=== PATIENT | female | born 1960 | race Hispanic/Latino ===

== ENCOUNTER → 2018-03-23 | Day surgery (SDC) | payer MEDICARE ==
[2018-03-17 12:33] LABS: BASOPHILS % 0.4 % (0.0-1.0); EOSINOPHILS # (AUTO) 0.1 (0.0-0.4); EOSINOPHILS % 1.9 % (0.0-6.0); HEMATOCRIT 38.5 % (34.2-44.1); HEMOGLOBIN 12.6 g/dL (12.0-16.0); LYMPHOCYTES # (AUTO) 2.7 (1.0-3.2); LYMPHOCYTES % 39.1 % (18.0-39.1); MEAN CORPUSCULAR HEMOGLOBIN 29.1 pg (28-32); MEAN CORPUSCULAR HGB CONC 32.7 g/dL (31-35); MEAN CORPUSCULAR VOLUME 88.9 fL (81-99); MONOCYTES # (AUTO) 0.4 (0.2-0.8); MONOCYTES % 5.4 % (4.4-11.3); NEUTROPHILS # (AUTO) 3.7 (2.1-6.9); NEUTROPHILS % 53.1 % (38.7-80.0); PLATELET COUNT 240 x10e3/uL (140-360); RED BLOOD COUNT 4.33 x10e6/uL (3.6-5.1); RED CELL DISTRIBUTION WIDTH 13.5 % (11.7-14.4)
[~2018-03-23] MED LIST: FENTANYL CITRATE/PF 100MCG/2 ML INJ ONE; GABAPENTIN300 MG PO; INVOKANA SQ; LISINOPRIL2.5 MG PO; METFORMIN HCL500 MG PO; MIDAZOLAM HCL 2 MG/2 ML VIAL ONE; PROPOFOL IV EMULSION 10 MG/ML 50 ML VIAL ONE; SIMVASTATIN20 MG PO
--- OUTSIDE RECORDS SUMMARY | 2018-03-23 06:25 | XMS REPORT | Continuity of Care Document ---
Author Author [facility] Interface Address Unknown Phone Unavailable Problems Problem Status Onset Date Classification Date Reported Comments Source ACUTE PYELONEPHRITIS, KIDNEY STONE, [place] Active 07/18/2016 [facility] COUGH X2 WEEKS Active 07/18/2016 [facility] DM (<span ID="[id number]">Confirmed</span>) Active Problem 07/24/2016 [facility] Diabetes Resolved Problem 07/24/2016 [facility] Hyperlipidemia Active Problem 07/24/2016 [facility] HTN (<span ID="[id number]">Confirmed</span>) Active Problem 07/24/2016 [facility] HTN (<span ID="[id number]">Confirmed</span>) Resolved Problem 07/24/2016 [facility] ACUTE PYELONEPHRITIS Active [facility] CALCULUS OF KIDNEY Active [facility] Medications Medication Details Route Status Patient Instructions Ordering Provider Order Date Source Acetaminophen 300 MG / Codeine Phosphate 30 MG Oral Tablet [Tylenol with Codeine #3] 1 tab, PO, Q6H, PRN Pain Score 6-10, # 20 tab, 0 Refill(s) Active 07/21/2016 [facility] lactobacillus acidophilus-lactobacillus casei oral delayed release capsule 1 tab, PO, BID, # 28 tab, 0 Refill(s) Active 07/21/2016 [facility] Ciprofloxacin 500 MG Oral Tablet [Cipro] 500 mg=1 tab, PO, Q12H, X 14 day, # 28 tab, 0 Refill(s) Active 07/21/2016 [facility] metoprolol tartrate 25 mg oral tablet 25 mg=1 tab, PO, Q12H, # 60 tab, 0 Refill(s) Active 07/21/2016 [facility] lisinopril 5 mg oral tablet 10 mg=2 tab, PO, Daily, # 60 tab, 0 Refill(s) Active 07/21/2016 [facility] guaiFENesin 600 mg oral tablet, extended release 600 mg=1 tab, PO, Q12H, PRN Cough, X 7 day, # 14 tab, 0 Refill(s) Active 07/21/2016 [facility] potassium chloride 40 mEq, 2 tab, Route: PO, Drug form: ERTAB, ONCE, Dosing Weight 106.182, kg, Start date: 07/21/16 8:02:00 FOLD SKIVER, Stop date: 07/21/16 8:02:00 CSTNotes: (Same as: K-Dur 20) "Do Not Crush" With food and full glass of water Inactive 07/21/2016 [facility] Protonix 40 mg, 1 tab, Route: PO, Drug form: ECTAB, Before Breakfast, Dosing Weight 106.182, kg, Start date: 07/21/16 7:30:00 FOLD SKIVER, Duration: 30 day, Stop date: 08/19/16 7:30:00 CDTNotes: Tablet should not be chewed or crushed. (Same as: Protonix) Inactive 07/21/2016 [facility] potassium chloride 40 mEq, 2 tab, Route: PO, Drug form: ERTAB, ONCE, Dosing Weight 106.182, kg, Start date: 07/20/16 12:16:00 FOLD SKIVER, Stop date: 07/20/16 12:16:00 CSTNotes: (Same as: K-Dur 20) "Do Not Crush" With food and full glass of water Inactive 07/20/2016 [facility] Magnesium Sulfate 2 gm, 50 mL, Route: IVPB, Drug form: INJ, ONCE, Dosing Weight 106.182, kg, Start date: 07/20/16 12:15:00 FOLD SKIVER, Duration: 2 hr, Stop date: 07/20/16 12:15:00 CSTNotes: WASTE: F/P - Sink; E - iRezQ Trash Bin Inactive 07/20/2016 [facility] metoprolol tartrate 25 mg, 1 tab, Route: PO, Drug form: TAB, Q12H, Dosing Weight 106.182, kg, Start date: 07/19/16 21:00:00 FOLD SKIVER, Duration: 30 day, Stop date: 08/18/16 9:00:00 CDTNotes: (Same as: Lopressor) No Longer Active 07/20/2016 [facility] Novolin N 50 unit, 0.5 mL, Route: SUB-Q, Drug form: INJ, BID, Dosing Weight 106.182, kg, Start date: 07/19/16 17:00:00 FOLD SKIVER, Duration: 30 day, Stop date: 08/18/16 9:00:00 CDTNotes: Roll in palms of hands gently; Do not shake vigorously. (Same as: NovoLIN N, Humulin N) Do not hold insulin without contacting prescriber "single patient use only" WASTE: F/P - Black; E - Municipal Trash Bin Stable for 14 days at room temperature Expires in days from Date No Longer Active 07/19/2016 [facility] Protonix 40 mg, Route: IVP, Drug form: INJ, Before Dinner, Dosing Weight 106.182, kg, Start date: 07/19/16 16:30:00 FOLD SKIVER, Duration: 30 day, Stop date: 08/17/16 16:30:00 CDTNotes: For IV push reconstitute with 10 ml 0.9% sodium chloride and push over 2 minutes. (Same as: Protonix) No Longer Active 07/19/2016 [facility] potassium chloride 40 mEq, 2 tab, Route: PO, Drug form: ERTAB, ONCE, Dosing Weight 106.182, kg, Start date: 07/19/16 14:45:00 FOLD SKIVER, Stop date: 07/19/16 14:45:00 CSTNotes: (Same as: K-Dur 20) "Do Not Crush" With food and full glass of water Inactive 07/19/2016 [facility] fentaNYL (ANES) Route: IV, Drug form: INJ, ONCE, Stop date: 07/19/16 13:27:00 FOLD SKIVER Inactive 07/19/2016 [facility] ondansetron (ANES) Route: IV, Drug form: INJ, ONCE, Stop date: 07/19/16 13:27:00 FOLD SKIVER Inactive 07/19/2016 [facility] hydromorphone (ANES) Route: IV, Drug form: INJ, ONCE, Stop date: 07/19/16 13:27:00 FOLD SKIVER Inactive 07/19/2016 [facility] propofol (ANES) Route: IV, Drug form: INJ, ONCE, Stop date: 07/19/16 13:27:00 FOLD SKIVER Inactive 07/19/2016 [facility] lidocaine (ANES) Route: IV, Drug form: INJ, ONCE, Stop date: 07/19/16 13:27:00 FOLD SKIVER Inactive 07/19/2016 [facility] midazolam (ANES) Route: IV, Drug form: SOLN, ONCE, Stop date: 07/19/16 13:27:00 FOLD SKIVER Inactive 07/19/2016 [facility] cefepime (ANES) Route: IV, Drug form: INJ, ONCE, Stop date: 07/19/16 13:27:00 FOLD SKIVER Inactive 07/19/2016 [facility] LR 1000 mL INJ (ANES) Route: IV, Total Volume: 1,000, Start date: 07/19/16 12:43:00 FOLD SKIVER, Stop date: 07/19/16 13:43:00 FOLD SKIVER Inactive 07/19/2016 [facility] Insulin regular 2 unit, Route: IV, ONCE, Dosing Weight 106.182, kg, Start date: 07/19/16 12:32:00 FOLD SKIVER, Stop date: 07/19/16 12:32:00 FOLD SKIVER Inactive 07/19/2016 [facility] Insulin regular 2 unit, 0.02 mL, Route: IV, Drug form: INJ, ONCE, Dosing Weight 106.182, kg, Start date: 07/19/16 11:25:00 FOLD SKIVER, Stop date: 07/19/16 11:25:00 CSTNotes: (Same as: Humulin R and NovoLIN R) WASTE: F/P - Black; E - Municipal Trash Bin (Do not shake) Inactive 07/19/2016 [facility] Lisinopril 10 mg, 2 tab, Route: PO, Drug form: TAB, Daily, Dosing Weight 106.182, kg, Start date: 07/19/16 9:00:00 FOLD SKIVER, Duration: 30 day, Stop date: 08/17/16 9:00:00 CDTNotes: (Same as: Prinivil, Zestril) No Longer Active 07/19/2016 [facility] Tylenol 650 mg, 2 tab, Route: PO, Drug form: TAB, Q6H, Dosing Weight 106.182, kg, PRN For Temp > 100.4 F, Start date: 07/19/16 0:30:00 FOLD SKIVER, Duration: 30 day, Stop date: 08/18/16 0:29:00 CDTNotes: Do not exceed 4 gm/day. (Same as: Tylenol) No Longer Active 07/19/2016 [facility] heparin 5,000 unit, 1 mL, Route: SUB-Q, Drug form: INJ, Q8H, Dosing Weight 106.182, kg, Start date: 07/19/16 0:00:00 FOLD SKIVER, Duration: 30 day, Stop date: 08/17/16 16:00:00 CDTNotes: porcine heparin No Longer Active 07/19/2016 [facility] Gentamicin Sulfate (JAIL) 120 mg, 100 mL, Route: IV, Drug form: INJ, [id number], Dosing Weight 106.182, kg, Start date: 07/18/16 22:00:00 FOLD SKIVER, Duration: 30 day, Stop date: 08/17/16 10:00:00 CDTNotes: TIME CRITICAL MEDICATION (Same as Garamycin) No Longer Active 07/19/2016 [facility] Dextrose 50% Syringe 25 gm, 50 mL, Route: IVP, Drug Form: INJ, Dosing Weight 106.182, kg, PRN, PRN Blood Glucose Results, Start date: 07/18/16 21:34:00 FOLD SKIVER, Duration: 30 day, Stop date: 08/17/16 22:33:00 CDT No Longer Active 07/19/2016 [facility] Glucagon 1 mg, Route: IM, Drug form: PDR/INJ, PRN, Dosing Weight 106.182, kg, PRN Blood Glucose Results, Start date: 07/18/16 21:34:00 FOLD SKIVER, Duration: 30 day, Stop date: 08/17/16 22:33:00 CDT No Longer Active 07/19/2016 [facility] Insulin, Aspart, Human 8 unit, 0.08 mL, Route: SUB-Q, Drug form: SOLN, TID-Before Meals, Dosing Weight 106.182, kg, PRN Blood Glucose Results, Start date: 07/18/16 21:34:00 FOLD SKIVER, Duration: 30 day, Stop date: 08/17/16 21:33:00 CDTNotes: Roll in palms of hands gently; Do not shake vigorously. (Same as: NovoLOG) "single patient use only" WASTE: F/P - Black; E - Municipal Trash Bin Stable for 28 days at room temperature. Expires in days from Date No Longer Active 07/19/2016 [facility] Simvastatin 20 mg, 1 tab, Route: PO, Drug form: TAB, Bedtime, Dosing Weight 106.182, kg, Start date: 07/18/16 21:00:00 FOLD SKIVER, Duration: 30 day, Stop date: 08/16/16 21:00:00 CDTNotes: (Same as: Zocor) No Longer Active 07/19/2016 [facility] cefepime 1 gm, Route: IV, [id number], Dosing Weight 106.182, kg, (For CrCl > /=50 ml/min), Start date: 07/18/16 21:00:00 FOLD SKIVER, Duration: 30 day, Stop date: 08/17/16 13:00:00 CDTNotes: (Same As: Maxipime) MEDICATION WASTE Product Size: 1000 mg Product Wasted: ___ mg No Longer Active 07/19/2016 [facility] Mucinex 600 mg, 1 tab, Route: PO, Drug form: ERTAB, Q12H, Dosing Weight 106.182, kg, Start date: 07/18/16 21:00:00 FOLD SKIVER, Duration: 30 day, Stop date: 08/17/16 9:00:00 CDTNotes: (Same as: Guaifenesin LA, Humibid LA, Mucinex) "Do Not Crush" Take medication with plenty of water. No Longer Active 07/19/2016 [facility] Morphine 2 mg, 1 mL, Route: IVP, Drug form: INJ, Q4H, Dosing Weight 106.182, kg, PRN Pain Score 7-10, Start date: 07/18/16 20:44:00 FOLD SKIVER, Duration: 30 day, Stop date: 08/17/16 20:43:00 CDTNotes: (Same as:MORPhine Sulfate) No Longer Active 07/19/2016 [facility] Ondansetron 4 mg, 2 mL, Route: IVP, Drug form: INJ, Q6H, Dosing Weight 106.182, kg, PRN Nausea & Vomiting, Start date: 07/18/16 20:43:00 FOLD SKIVER, Duration: 30 day, Stop date: 08/17/16 20:42:00 CDTNotes: (Same as: Zofran) MEDICATION WASTE Product Size: 4 mg Product Wasted: ___ mg No Longer Active 07/19/2016 [facility] sodium chloride 0.9% 1000 ml INJ 1,000 mL 1,000 mL, Rate: 125 ml/hr, Infuse over: 8 hr, Route: IV, Dosing Weight 106.182 kg, Total Volume: 1,000, Start date: 07/18/16 20:42:00 FOLD SKIVER, Duration: 30 day, Stop date: 08/17/16 20:41:00 CDT No Longer Active 07/19/2016 [facility] Unknown Home Medication See Instructions, Refill(s) 0 No Longer Active 07/19/2016 [facility] simvastatin 20 mg oral tablet 20 mg=1 tab, PO, Bedtime, 0 Refill(s) Active 07/19/2016 [facility] 24 HR Metformin hydrochloride 500 MG Extended Release Tablet 1,000 mg=2 tab, PO, BID, 0 Refill(s) Active 07/19/2016 [facility] NPH Insulin, Human 100 UNT/ML Injectable Suspension [Novolin N] 50 unit, SUB-Q, BID, 0 Refill(s) Active 07/19/2016 [facility] Tylenol 975 mg, 3 tab, Route: PO, Drug form: TAB, ONCE, Dosing Weight 106.818, kg, Priority: STAT, Start date: 07/18/16 18:17:00 FOLD SKIVER, Stop date: 07/18/16 18:17:00 CSTNotes: Do not exceed 4 gm/day. (Same as: Tylenol) Inactive 07/19/2016 [facility] Rocephin 1 gm, Route: IVPB, ONCE, Dosing Weight 106.818, kg, Priority: STAT, Start date: 07/18/16 17:05:00 FOLD SKIVER, Stop date: 07/18/16 17:05:00 CSTNotes: (Same As: Rocephin). Use with 100 mL NS and infuse over 30 min MEDICATION WASTE Product Size: 1000 mg Product Wasted: ___ mg Inactive 07/18/2016 [facility] Sodium Chloride 0.154 MEQ/ML Injectable Solution 1,000 mL, 1,000 ml/hr, Infuse Over: 1 hr, Route: IV, 1,000, Drug form: INJ, ONCE, Priority: STAT, Dosing Weight 106.818 kg, Start date: 07/18/16 17:04:00 FOLD SKIVER, Duration: 1 doses or times, Stop date: 07/18/16 17:04:00 FOLD SKIVER Inactive 07/18/2016 [facility] Motrin 800 mg, Route: PO, Drug form: TAB, ONCE, Dosing Weight 106.818, kg, Priority: STAT, Start date: 07/18/16 16:51:00 FOLD SKIVER, Stop date: 07/18/16 16:51:00 FOLD SKIVER Inactive 07/18/2016 [facility] Albuterol 0.833 MG/ML / Ipratropium Ambrose 0.167 MG/ML Inhalant Solution [DuoNeb] 3 ml, Route: NEB, Drug Form: SOLN, Dosing Weight 106.818, kg, PRN, PRN Respiratory Protocol, Start date: 07/18/16 16:23:00 FOLD SKIVER, Duration: 30 day, Stop date: 08/17/16 17:22:00 CDTNotes: (Same as: Duoneb) No Longer Active 07/18/2016 [facility] Sodium Chloride 0.154 MEQ/ML Injectable Solution 1,000 mL, 1,000 ml/hr, Infuse Over: 1 hr, Route: IV, 1,000, Drug form: INJ, ONCE, Priority: STAT, Dosing Weight 106.818 kg, Start date: 07/18/16 16:16:00 FOLD SKIVER, Duration: 1 doses or times, Stop date: 07/18/16 16:16:00 FOLD SKIVER Inactive 07/18/2016 [facility] Zofran 4 mg, 2 mL, Route: IVP, Drug form: INJ, ONCE, Dosing Weight 106.818, kg, Start date: 07/18/16 16:16:00 FOLD SKIVER, Stop date: 07/18/16 16:16:00 CSTNotes: (Same as: Zofran) MEDICATION WASTE Product Size: 4 mg Product Wasted: ___ mg Inactive 07/18/2016 [facility] Allergies, Adverse Reactions, Alerts Substance Category Reaction Severity Reaction type Status Date Reported Comments Source Immunizations Immunization Date Given Site Status Last Updated Comments Source Results Order Name Results Value Reference Range Date Interpretation Comments Source CHEM PANEL Lactic Acid Lvl 0.7 mMol/L 0.5 - 2.2 07/21/2016 [facility] CHEM PANEL Calcium Lvl 7.8 mg/dL 8.5 - 10.5 07/21/2016 [facility] CHEM PANEL Chloride Lvl 106 meq/L 95 - 109 07/21/2016 [facility] CHEM PANEL CO2 23 meq/L 24 - 32 07/21/2016 [facility] CHEM PANEL Sodium Lvl 140 meq/L 135 - 145 07/21/2016 [facility] CHEM PANEL Potassium Lvl 3.2 meq/L 3.5 - 5.1 07/21/2016 [facility] CHEM PANEL Creatinine Lvl 0.54 mg/dL 0.50 - 1.40 07/21/2016 [facility] CHEM PANEL Glucose Lvl 116 mg/dL 70 - 99 07/21/2016 [facility] CHEM PANEL BUN 8 mg/dL 7 - 22 07/21/2016 [facility] CHEM PANEL Bili Total 0.6 mg/dL 0.2 - 1.3 07/21/2016 [facility] CHEM PANEL Albumin Lvl 2.2 g/dL 3.5 - 5.0 07/21/2016 [facility] CHEM PANEL ALT 13 unit/L 0 - 65 07/21/2016 [facility] CHEM PANEL Total Protein 5.7 g/dL 6.4 - 8.4 07/21/2016 [facility] CHEM PANEL AST 16 unit/L 0 - 37 07/21/2016 [facility] CHEM PANEL Alk Phos 86 unit/L 39 - 136 07/21/2016 [facility] CHEM PANEL eGFR 106 mL/min/1.73m2 07/21/2016 Result Comment: The eGFR is calculated using the CKD-EPI formula. In most young, healthy individuals the eGFR will be >90 mL/min/1.73m2. The eGFR declines with age. An eGFR of 60-89 may be normal in some populations, particularly the elderly, for whom the CKD-EPI formula has not been extensively validated. Use of the eGFR is not recommended in the following populations: Individuals with unstable creatinine concentrations, including patients and those with serious co-morbid conditions. Patients with extremes in muscle mass or diet. The data above are obtained from the National Kidney Disease Education Program (NKDEP) which additionally recommends that when the eGFR is used in patients with extremes of body mass index for purposes of drug dosing, the eGFR should be multiplied by the estimated BMI. [facility] CHEM PANEL AGAP 14.2 meq/L 10.0 - 20.0 07/21/2016 [facility] CHEM PANEL B/C Ratio 15 6 - 25 07/21/2016 [facility] CHEM PANEL Globulin 3.5 g/dL 2.7 - 4.2 07/21/2016 [facility] CHEM PANEL A/G Ratio 0.6 0.7 - 1.6 07/21/2016 [facility] HEMATOLOGY Lymphocytes 22.9 % 20.0 - 40.0 07/21/2016 [facility] HEMATOLOGY Segs 64.1 % 45.0 - 75.0 07/21/2016 [facility] HEMATOLOGY Eosinophils 0.5 % 0.0 - 4.0 07/21/2016 [facility] HEMATOLOGY Basophils 0.2 % 0.0 - 1.0 07/21/2016 [facility] HEMATOLOGY Segs-Bands # 4.1 K/CMM 1.5 - 8.1 07/21/2016 [facility] HEMATOLOGY Monocytes 12.3 % 2.0 - 12.0 07/21/[address] [facility] Lymphocytes # 1.5 K/CMM 1.0 - 5.5 07/21/[address] [facility] Monocytes # 0.8 K/CMM 0.0 - 0.8 07/21/[address] [facility] Platelet 208 K/CMM 133 - 450 07/21/2016 [facility] HEMATOLOGY RDW 14.5 % 11.5 - 14.5 07/21/[address] [facility] MCH 28.3 pg 27.0 - 31.0 07/21/[address] [facility] MPV 8.6 fL 7.4 - 10.4 07/21/[address] [facility] MCV 82.1 fL 80.0 - 98.0 07/21/[address] [facility] Hct 29.5 % 36.0 - 48.0 07/21/[address] [facility] Hgb 10.1 g/dL 12.0 - 16.0 07/21/[address] [facility] RBC 3.59 M/CMM 4.20 - 5.40 07/21/[address] [facility] WBC 6.4 K/CMM 3.7 - 10.4 07/21/[address] [facility] MCHC 34.4 g/dL 32.0 - 36.0 07/21/2016 [facility] ANEMIA STUDY % Satur Fe 8 % 12 - 57 07/20/2016 [facility] ANEMIA STUDY UIBC 193 ug/dl 110 - 370 07/20/2016 [facility] ANEMIA STUDY Iron 17 ug/dl 30 - 160 07/20/2016 [facility] ANEMIA STUDY TIBC 210 ug/dl 228 - 428 07/20/2016 [facility] ANEMIA STUDY Ferritin Lvl 200 ng/mL 5 - 204 07/20/2016 [facility] CHEM PANEL Magnesium Lvl 1.7 mg/dL 1.8 - 2.4 07/20/2016 [facility] CHEM PANEL Lipase Lvl 65 unit/L 73 - 393 07/20/2016 [facility] CHEM PANEL eGFR 103 mL/min/1.73m2 07/20/2016 Result Comment: The eGFR is calculated using the CKD-EPI formula. In most young, healthy individuals the eGFR will be >90 mL/min/1.73m2. The eGFR declines with age. An eGFR of 60-89 may be normal in some populations, particularly the elderly, for whom the CKD-EPI formula has not been extensively validated. Use of the eGFR is not recommended in the following populations: Individuals with unstable creatinine concentrations, including patients and those with serious co-morbid conditions. Patients with extremes in muscle mass or diet. The data above are obtained from the National Kidney Disease Education Program (NKDEP) which additionally recommends that when the eGFR is used in patients with extremes of body mass index for purposes of drug dosing, the eGFR should be multiplied by the estimated BMI. [facility] CHEM PANEL Glucose Lvl 128 mg/dL 70 - 99 07/20/2016 [facility] CHEM PANEL Albumin Lvl 2.3 g/dL 3.5 - 5.0 07/20/2016 [facility] CHEM PANEL AST 17 unit/L 0 - 37 07/20/2016 [facility] CHEM PANEL ALT 15 unit/L 0 - 65 07/20/2016 [facility] CHEM PANEL Bili Total 1.1 mg/dL 0.2 - 1.3 07/20/2016 [facility] CHEM PANEL Alk Phos 85 unit/L 39 - 136 07/20/2016 [facility] CHEM PANEL Creatinine Lvl 0.59 mg/dL 0.50 - 1.40 07/20/2016 [facility] CHEM PANEL BUN 8 mg/dL 7 - 22 07/20/2016 [facility] CHEM PANEL Sodium Lvl 136 meq/L 135 - 145 07/20/2016 [facility] CHEM PANEL Potassium Lvl 3.2 meq/L 3.5 - 5.1 07/20/2016 [facility] CHEM PANEL CO2 23 meq/L 24 - 32 07/20/2016 [facility] CHEM PANEL Chloride Lvl 103 meq/L 95 - 109 07/20/2016 [facility] CHEM PANEL Calcium Lvl 7.8 mg/dL 8.5 - 10.5 07/20/2016 [facility] CHEM PANEL Total Protein 6.6 g/dL 6.4 - 8.4 07/20/2016 [facility] CHEM PANEL A/G Ratio 0.5 0.7 - 1.6 07/20/2016 [facility] CHEM PANEL Globulin 4.3 g/dL 2.7 - 4.2 07/20/2016 [facility] CHEM PANEL B/C Ratio 14 6 - 25 07/20/2016 [facility] CHEM PANEL AGAP 13.2 meq/L 10.0 - 20.0 07/20/[address] [facility] Plt Morph Normal (07/20/16 4:46 AM) 07/20/[address] [facility] RBC Morph Normal (07/20/16 4:46 AM) 07/20/[address] [facility] Tot Cell Ct 100 07/20/[address] [facility] Segs 76.0 % 45.0 - 75.0 07/20/[address] [facility] Segs-Bands # 5.8 K/CMM 1.5 - 8.1 07/20/[address] [facility] Monocytes # 0.6 K/CMM 0.0 - 0.8 07/20/[address] [facility] Lymphocytes # 0.8 K/CMM 1.0 - 5.5 07/20/[address] [facility] Atypical Lymphs 0.0 % <=0.0 % 07/20/[address] [facility] Monocytes 8.0 % 2.0 - 12.0 07/20/[address] [facility] Lymphocytes 11.0 % 20.0 - 40.0 07/20/[address] [facility] Bands 5.0 % 0.0 - 11.0 07/20/[address] [facility] MCV 82.8 fL 80.0 - 98.0 07/20/[address] [facility] MCH 28.5 pg 27.0 - 31.0 07/20/[address] [facility] RDW 14.4 % 11.5 - 14.5 07/20/[address] [facility] Platelet 210 K/CMM 133 - 450 07/20/[address] [facility] MCHC 34.4 g/dL 32.0 - 36.0 07/20/[address] [facility] WBC 7.2 K/CMM 3.7 - 10.4 07/20/[address] [facility] RBC 3.80 M/CMM 4.20 - 5.40 07/20/2016 [facility] HEMATOLOGY Hct 31.5 % 36.0 - 48.0 07/20/2016 [facility] HEMATOLOGY Hgb 10.8 g/dL 12.0 - 16.0 07/20/2016 [facility] HEMATOLOGY MPV 8.7 fL 7.4 - 10.4 07/20/2016 [facility] LIPIDS Chol 111 mg/dL <=199 mg/dL 07/20/2016 [facility] LIPIDS Trig 259 mg/dL <=149 mg/dL 07/20/2016 [facility] LIPIDS VLDL 52 07/20/2016 [facility] LIPIDS CHD Risk 9.25 3.90 - 5.80 07/20/2016 [facility] LIPIDS HDL 12 mg/dL >=61 mg/dL 07/20/2016 [facility] LIPIDS LDL (Calculated) 47 mg/dL <=99 mg/dL 07/20/2016 [facility] SPECIAL CHEMISTRY Hgb A1C 7.3 % <=5.6 % 07/20/2016 [facility] Renal pyelogram retrograde DX Renal pyelogram retrograde DX Right retrograde pyelogram: Spot images from Cystoscopy are submitted. Contrast injection into the right collecting system shows mild dilatation of the pelvocalyceal system. A large stone was previously demonstrated in the right renal pelvis which is obscured by the contrast. There is incomplete filling of the lower pole calyces related to partial obstruction by the calculus. Subsequent images show right ureteral stent placement in good position with the proximal pigtail in the upper pole infundibulum. [id number] 07/19/2016 - - Read by: Abdulkadir Schwartz MD Dictated Date/time: 07/19/16 14:26 Electronically Signed by: Abdulkadir Schwartz MD 07/19/16 14:30 FINAL REPORT [facility] CHEM PANEL eGFR 84 mL/min/1.73m2 07/19/2016 Result Comment: The eGFR is calculated using the CKD-EPI formula. In most young, healthy individuals the eGFR will be >90 mL/min/1.73m2. The eGFR declines with age. An eGFR of 60-89 may be normal in some populations, particularly the elderly, for whom the CKD-EPI formula has not been extensively validated. Use of the eGFR is not recommended in the following populations: Individuals with unstable creatinine concentrations, including patients and those with serious co-morbid conditions. Patients with extremes in muscle mass or diet. The data above are obtained from the National Kidney Disease Education Program (NKDEP) which additionally recommends that when the eGFR is used in patients with extremes of body mass index for purposes of drug dosing, the eGFR should be multiplied by the estimated BMI. [facility] CHEM PANEL AGAP 13.2 meq/L 10.0 - 20.0 07/19/2016 [facility] CHEM PANEL Calcium Lvl 7.8 mg/dL 8.5 - 10.5 07/19/2016 [facility] CHEM PANEL Chloride Lvl 103 meq/L 95 - 109 07/19/2016 [facility] CHEM PANEL CO2 21 meq/L 24 - 32 07/19/2016 [facility] CHEM PANEL Potassium Lvl 3.2 meq/L 3.5 - 5.1 07/19/2016 [facility] CHEM PANEL Creatinine Lvl 0.79 mg/dL 0.50 - 1.40 07/19/2016 [facility] CHEM PANEL Sodium Lvl 134 meq/L 135 - 145 07/19/2016 [facility] CHEM PANEL Glucose Lvl 231 mg/dL 70 - 99 07/19/2016 [facility] CHEM PANEL BUN 14 mg/dL 7 - 22 07/19/2016 [facility] HEMATOLOGY WBC 7.6 K/CMM 3.7 - 10.4 07/19/2016 [facility] HEMATOLOGY RBC 3.86 M/CMM 4.20 - 5.40 07/19/[address] [facility] Hct 32.1 % 36.0 - 48.0 07/19/2016 [facility] HEMATOLOGY Hgb 10.9 g/dL 12.0 - 16.0 07/19/[address] [facility] Platelet 194 K/CMM 133 - 450 07/19/[address] [facility] MPV 8.6 fL 7.4 - 10.4 07/19/[address] [facility] MCV 83.3 fL 80.0 - 98.0 07/19/[address] [facility] MCH 28.2 pg 27.0 - 31.0 07/19/[address] [facility] MCHC 33.9 g/dL 32.0 - 36.0 07/19/2016 [facility] HEMATOLOGY RDW 14.3 % 11.5 - 14.5 07/19/2016 [facility] [facility] CHEM PANEL Lactic Acid Lvl 1.6 mMol/L 0.5 - 2.2 07/19/2016 [facility] CHEM PANEL Lactic Acid Lvl 2.3 mMol/L 0.5 - 2.2 07/18/2016 [facility] URINE AND STOOL UA Color Tiana 07/18/2016 [facility] URINE AND STOOL UA Nitrite Positive *ABN* (07/18/16 5:03 PM) Negative 07/18/2016 [facility] URINE AND STOOL UA Urobilinogen 4.0 mg/dL 0.1 - 1.0 07/18/2016 [facility] URINE AND STOOL UA Blood Moderate *ABN* (07/18/16 5:03 PM) Negative 07/18/2016 [facility] URINE AND STOOL UA Bili Negative *NA* (07/18/16 5:03 PM) Negative 07/18/2016 [facility] URINE AND STOOL UA Ketones Trace mg/dL Negative mg/dL 07/18/2016 [facility] URINE AND STOOL UA Sq Epi None Seen 07/18/2016 [facility] URINE AND STOOL UA Bacteria Occasional /HPF None Seen /HPF 07/18/2016 [facility] URINE AND STOOL UA RBC 38 /HPF 0 - 2 07/18/2016 [facility] URINE AND STOOL UA WBC null 0 - 5 07/18/2016 [facility] URINE AND STOOL UA Leuk Est Large *ABN* (07/18/16 5:03 PM) Negative 07/18/2016 [facility] URINE AND STOOL UA Glucose 500 mg/dL Negative mg/dL 07/18/2016 [facility] URINE AND STOOL UA Protein 100 mg/dL Negative mg/dL 07/18/2016 [facility] URINE AND STOOL UA pH 6.0 5.0 - 8.0 07/18/2016 [facility] URINE AND STOOL UA Spec Grav 1.024 <=1.030 07/18/2016 [facility] URINE AND STOOL UA Turbidity Marked *ABN* (07/18/16 5:03 PM) Clear 07/18/2016 [facility] HEMATOLOGY Lymphocytes 6.7 % 20.0 - 40.0 07/18/2016 [facility] HEMATOLOGY Segs 86.6 % 45.0 - 75.0 07/18/2016 [facility] HEMATOLOGY Segs-Bands # 13.2 K/CMM 1.5 - 8.1 07/18/2016 [facility] HEMATOLOGY Monocytes 6.6 % 2.0 - 12.0 07/18/2016 [facility] HEMATOLOGY Basophils 0.1 % 0.0 - 1.0 07/18/2016 [facility] HEMATOLOGY Lymphocytes # 1.0 K/CMM 1.0 - 5.5 07/18/2016 [facility] HEMATOLOGY Monocytes # 1.0 K/CMM 0.0 - 0.8 07/18/2016 [facility] RAPID Grp A Strep Scr Negative (07/18/16 4:47 PM) Negative 07/18/2016 [facility] VIRAL - SEROLOGY Influ B Negative (07/18/16 4:47 PM) Negative 07/18/2016 [facility] VIRAL - SEROLOGY Influ A Negative (07/18/16 4:47 PM) Negative 07/18/2016 [facility] Renal Stone CT Renal Stone CT CT ABD PELVIS W/O Study: CT of the abdomen and pelvis without intravenous contrast History: Right flank pain Comments: CT of the abdomen and pelvis was obtained utilizing multiple axial images from the lung bases to the ishial tuberosities. Intravenous contrast was not given. Lack of intravenous contrast limits evaluation of solid organ, vessels and certain processes. Total exam DLP is 1170 mgy-cm. Abdomen: The visualized unenhanced spleen, gallbladder, pancreas and adrenal glands are within normal limits. Enlarged liver. 2.5 x 2.1 cm obstructive calculus in the right renal pelvis causing mild hydronephrosis. Right perinephric fat stranding likely related to obstructive process. Evaluation for pyelonephritis limited due to lack of intravenous contrast. Correlate with urinalysis. The small and large bowel loops are nondilated. No evidence of appendicitis or diverticulitis. The urinary bladder is within normal limits. There is no free air or fluid collections. The bones are within normal limits. Impression: 2.5 x 2.1 cm obstructive calculus in the right renal pelvis causing mild hydronephrosis. 07/18/2016 - - Read by: Unique Grossman MD Dictated Date/time: 07/18/16 19:20 Electronically Signed by: Unique Grossman MD 07/18/16 19:27 FINAL REPORT [facility] Chest 2 views DX Chest 2 views DX Study: CHEST, PA AND LATERAL Clinical Indication: Cough and fever; Comparison: Chest 01/02/2013 FINDINGS: Image was only available for interpretation at 1759 hours. The cardiac silhouette is top normal in size. Thoracic aorta is slightly ectatic. The lungs are incompletely inflated. No pneumonia, vascular congestion or pleural effusion is seen. There is minor thoracic spondylosis. IMPRESSION: No acute abnormality. SL: [id number] 07/18/2016 - - Read by: Víctor Marcelo MD Dictated Date/time: 07/18/16 17:59 Electronically Signed by: Víctor Marcelo MD 07/18/16 18:00 FINAL REPORT [facility] Vital Signs Vital Sign Value Date Comments Source Systolic (mm Hg) 128 07/21/2016 [facility] Diastolic (mm Hg) 72 07/21/2016 [facility] Respitory Rate 18 07/21/2016 [facility] Heart Rate 76 07/21/2016 [facility] Temperature Oral (F) 98.8 F 07/21/2016 [facility] Heart Rate 83 07/21/2016 [facility] Respitory Rate 19 07/21/2016 [facility] Temperature Oral (F) 99.3 F 07/21/2016 [facility] Systolic (mm Hg) 150 07/21/2016 [facility] Diastolic (mm Hg) 76 07/21/2016 [facility] Respitory Rate 18 07/21/2016 [facility] Heart Rate 89 07/21/2016 [facility] Systolic (mm Hg) 147 07/21/2016 [facility] Diastolic (mm Hg) 78 07/21/2016 [facility] Temperature Oral (F) 98 F 07/21/2016 [facility] BMI Calculated 38.95 07/19/2016 [facility] Height 165.1 cm 07/19/2016 [facility] Weight 106.182 07/19/2016 [facility] Height 165.1 cm 07/18/2016 [facility] Weight 106.818 07/18/2016 [facility] BMI Calculated 39.19 07/18/2016 [facility] Encounters Location Location Details Encounter Type Encounter Number Reason For Visit Attending Provider ADM Date DC Date Status Source [facility] Inpatient [id number] Rajan Dawn 07/18/2016 07/21/2016 [facility] Procedures Procedure Code Date Perfomer Comments Source Caesarean section [id number] [facility] Cholecystectomy [id number] [facility] Exploration of carpal tunnel [id number] [facility] TORIBIO BSO - Total abdominal hysterectomy and bilateral salpingo-oophorectomy [id number] [facility]
--- OUTSIDE RECORDS SUMMARY | 2018-03-23 06:26 | XMS REPORT | Summary of Care ---
Author Author [facility] Organization [facility] Address Unknown Phone Unavailable Encounter HQ Vernell(ALEXI) [id number] Date(s): 07/18/16 - 07/21/16 [facility] [address] [place] [address]- [phone] Discharge Disposition: Home or Self Care Attending Physician: Rajan Dawn MD Admitting Physician: Rajan Dawn MD Vital Signs 1 2 3 Most recent to oldest [Reference Range]: 165.1 cm (07/18/16 8:37 PM) 165.1 cm (07/18/16 1:13 PM) Height 98.8 DegF (07/21/16 7:57 AM) 99.3 DegF *HI* (07/21/16 4:00 AM) 98 DegF (07/21/16 12:00 AM) Temperature Oral [96.4-99.1 DegF] 128/72 mmHg (07/21/16 7:57 AM) 150/76 mmHg *HI* (07/21/16 4:00 AM) 147/78 mmHg *HI* (07/21/16 12:00 AM) Blood Pressure [90-140/60-90 mmHg] 18 BRMIN (07/21/16 7:57 AM) 19 BRMIN (07/21/16 4:00 AM) 18 BRMIN (07/21/16 12:00 AM) Respiratory Rate [14-20 BRMIN] 76 bpm (07/21/16 7:57 AM) 83 bpm (07/21/16 4:00 AM) 89 bpm (07/21/16 12:00 AM) Peripheral Pulse Rate [60-100 bpm] 106.182 kg (07/18/16 8:37 PM) 106.818 kg (07/18/16 1:13 PM) Weight 38.95 m2 (07/18/16 8:37 PM) 39.19 m2 (07/18/16 1:13 PM) Body Mass Index Problem List Condition Effective Dates Status Health Status Informant DM (diabetes Active mellitus)(Confirmed) Diabetes(Confirmed) Resolved Hyperlipidemia(Confi Active rmed) HTN Active (hypertension)(Confi rmed) HTN Resolved (hypertension)(Confi rmed) Allergies, Adverse Reactions, Alerts Substance Reaction Severity Status NKDA Active Medications cefepime (ANES) Route: IV, Drug form: INJ, ONCE, Stop date: 07/19/16 13:27:00 [employer] Start Date: 07/19/16 Stop Date: 07/19/16 Status: Completed cefepime + sodium chloride 0.9% INJ 100 mL 1 gm, Route: IV, [id number], Dosing Weight 106.182, kg, (For CrCl > /=50 ml/min), Start date: 07/18/16 21:00:00 [employer], Duration: 30 day, Stop date: 08/17/16 13:00:00 CDT Notes: (Same As: Maxipime) MEDICATION WASTE Product Size: 1000 mgProduc t Wasted: ___ mg Start Date: 07/18/16 Stop Date: 07/21/16 Status: Discontinued Cipro 500 mg oral tablet 500 mg=1 tab, PO, Q12H, X 14 day, # 28 tab, 0 Refill(s) Start Date: 07/21/16 Stop Date: 08/04/16 Status: Ordered Dextrose 50% Syringe 25 gm, 50 mL, Route: IVP, Drug Form: INJ, Dosing Weight 106.182, kg, PRN, PRN Bl ood Glucose Results, Start date: 07/18/16 21:34:00 [employer], Duration: 30 day, Stop d ate: 08/17/16 22:33:00 CDT Start Date: 07/18/16 Stop Date: 07/21/16 Status: Discontinued Dextrose 50% Syringe 12.5 gm, 25 mL, Route: IVP, Drug Form: INJ, Dosing Weight 106.182, kg, PRN, PRN Blood Glucose Results, Start date: 07/18/16 21:34:00 [employer], Duration: 30 day, Stop date: 08/17/16 22:33:00 CDT Start Date: 07/18/16 Stop Date: 07/21/16 Status: Discontinued DuoNeb inhalation solution 3 ml, Route: NEB, Drug Form: SOLN, Dosing Weight 106.818, kg, PRN, PRN Respirato ry Protocol, Start date: 07/18/16 16:23:00 [employer], Duration: 30 day, Stop date: 17:22:00 CDT Notes: (Same as: Duoneb) Start Date: 07/18/16 Stop Date: 07/21/16 Status: Discontinued fentaNYL (ANES) Route: IV, Drug form: INJ, ONCE, Stop date: 07/19/16 13:27:00 [employer] Start Date: 07/19/16 Stop Date: 07/19/16 Status: Completed gentamicin 120 mg, 100 mL, Route: IV, Drug form: INJ, [id number], Dosing Weight 106.182, kg, S tart date: 07/18/16 22:00:00 [employer], Duration: 30 day, Stop date: 08/17/16 10:00:00 CDT Notes: TIME CRITICAL MEDICATION(Same as Garamycin) Start Date: 07/18/16 Stop Date: 07/21/16 Status: Discontinued glucagon 1 mg, Route: IM, Drug form: PDR/INJ, PRN, Dosing Weight 106.182, kg, PRN Blood G lucose Results, Start date: 07/18/16 21:34:00 [employer], Duration: 30 day, Stop date: 08/17/16 22:33:00 CDT Start Date: 07/18/16 Stop Date: 07/21/16 Status: Discontinued guaiFENesin 600 mg oral tablet, extended release 600 mg=1 tab, PO, Q12H, PRN Cough, X 7 day, # 14 tab, 0 Refill(s) Start Date: 07/21/16 Stop Date: 07/28/16 Status: Ordered heparin 5,000 unit, 1 mL, Route: SUB-Q, Drug form: INJ, Q8H, Dosing Weight 106.182, kg, Start date: 07/19/16 0:00:00 [employer], Duration: 30 day, Stop date: 08/17/16 16:00:00 CDT Notes: porcine heparin Start Date: 07/19/16 Stop Date: 07/21/16 Status: Discontinued hydromorphone (ANES) Route: IV, Drug form: INJ, ONCE, Stop date: 07/19/16 13:27:00 [employer] Start Date: 07/19/16 Stop Date: 07/19/16 Status: Completed insulin aspart 8 unit, 0.08 mL, Route: SUB-Q, Drug form: SOLN, TID-Before Meals, Dosing Weight 106.182, kg, PRN Blood Glucose Results, Start date: 07/18/16 21:34:00 [employer], Durat ion: 30 day, Stop date: 08/17/16 21:33:00 CDT Notes: Roll in palms of hands gently; Do not shake vigorously. (Same as: [address])"single patient use only"WASTE: F/P - Black; E - Municipal Trash Bin Stable f or 28 days at room temperature.Expires in days from Date Start Date: 07/18/16 Stop Date: 07/21/16 Status: Discontinued insulin aspart 6 unit, 0.06 mL, Route: SUB-Q, Drug form: SOLN, TID-Before Meals, Dosing Weight 106.182, kg, PRN Blood Glucose Results, Start date: 07/18/16 21:34:00 [employer], Durat ion: 30 day, Stop date: 08/17/16 21:33:00 CDT Notes: Roll in palms of hands gently; Do not shake vigorously. (Same as: [address])"single patient use only"WASTE: F/P - Black; E - Municipal Trash Bin Stable f or 28 days at room temperature.Expires in days from Date Start Date: 07/18/16 Stop Date: 07/21/16 Status: Discontinued insulin aspart 4 unit, 0.04 mL, Route: SUB-Q, Drug form: SOLN, TID-Before Meals, Dosing Weight 106.182, kg, PRN Blood Glucose Results, Start date: 07/18/16 21:34:00 [employer], Durat ion: 30 day, Stop date: 08/17/16 21:33:00 CDT Notes: Roll in palms of hands gently; Do not shake vigorously. (Same as: [address])"single patient use only"WASTE: F/P - Black; E - Municipal Trash Bin Stable f or 28 days at room temperature.Expires in days from Date Start Date: 07/18/16 Stop Date: 07/21/16 Status: Discontinued insulin aspart 2 unit, 0.02 mL, Route: SUB-Q, Drug form: SOLN, TID-Before Meals, Dosing Weight 106.182, kg, PRN Blood Glucose Results, Start date: 07/18/16 21:34:00 [employer], Durat ion: 30 day, Stop date: 08/17/16 21:33:00 CDT Notes: Roll in palms of hands gently; Do not shake vigorously. (Same as: Novo[address])"single patient use only"WASTE: F/P - Black; E - Municipal Trash Bin Stable f or 28 days at room temperature.Expires in days from Date Start Date: 07/18/16 Stop Date: 07/21/16 Status: Discontinued insulin aspart 10 unit, 0.1 mL, Route: SUB-Q, Drug form: SOLN, TID-Before Meals, Dosing Weight 106.182, kg, PRN Blood Glucose Results, Start date: 07/18/16 21:34:00 [employer], Durat ion: 30 day, Stop date: 08/17/16 21:33:00 CDT Notes: Roll in palms of hands gently; Do not shake vigorously. (Same as: [address])"single patient use only"WASTE: F/P - Black; E - Municipal Trash Bin Stable f or 28 days at room temperature.Expires in days from Date Start Date: 07/18/16 Stop Date: 07/21/16 Status: Discontinued Insulin regular 2 unit, 0.02 mL, Route: IV, Drug form: INJ, ONCE, Dosing Weight 106.182, kg, Sta rt date: 07/19/16 11:25:00 [employer], Stop date: 07/19/16 11:25:00 [employer] Notes: (Same as: Humulin R and NovoLIN R)WASTE: F/P - Black; E - Municipal Trash Bin (Do not shake) Start Date: 07/19/16 Stop Date: 07/19/16 Status: Completed Insulin regular 2 unit, Route: IV, ONCE, Dosing Weight 106.182, kg, Start date: 07/19/16 12:32:0 0 [employer], Stop date: 07/19/16 12:32:00 [employer] Start Date: 07/19/16 Stop Date: 07/19/16 Status: Completed lactobacillus acidophilus-lactobacillus casei oral delayed release capsule 1 tab, PO, BID, # 28 tab, 0 Refill(s) Start Date: 07/21/16 Stop Date: 08/04/16 Status: Ordered lidocaine (ANES) Route: IV, Drug form: INJ, ONCE, Stop date: 07/19/16 13:27:00 [employer] Start Date: 07/19/16 Stop Date: 07/19/16 Status: Completed lisinopril 10 mg, 2 tab, Route: PO, Drug form: TAB, Daily, Dosing Weight 106.182, kg, Start date: 07/19/16 9:00:00 [employer], Duration: 30 day, Stop date: 08/17/16 9:00:00 CDT Notes: (Same as: Prinivil, Zestril) Start Date: 07/19/16 Stop Date: 07/21/16 Status: Discontinued lisinopril 5 mg oral tablet 10 mg=2 tab, PO, Daily, # 60 tab, 0 Refill(s) Start Date: 07/21/16 Stop Date: 08/20/16 Status: Ordered LR 1000 mL INJ (ANES) Route: IV, Total Volume: 1,000, Start date: 07/19/16 12:43:00 [employer], Stop date: 13:43:00 [employer]BER Start Date: 07/19/16 Stop Date: 07/19/16 Status: Completed magnesium sulfate 2gm / NS 50ml (premixed) 2 gm, 50 mL, Route: IVPB, Drug form: INJ, ONCE, Dosing Weight 106.182, kg, Start date: 07/20/16 12:15:00 [employer], Duration: 2 hr, Stop date: 07/20/16 12:15:00 [employer]BER Notes: WASTE: F/P - Sink; E - Municipal Trash Bin Start Date: 07/20/16 Stop Date: 07/20/16 Status: Completed metFORMIN 500 mg oral tablet, extended release 1,000 mg=2 tab, PO, BID, 0 Refill(s) Start Date: 07/18/16 Status: Ordered metoprolol tartrate 25 mg, 1 tab, Route: PO, Drug form: TAB, Q12H, Dosing Weight 106.182, kg, Start date: 07/19/16 21:00:00 [employer], Duration: 30 day, Stop date: 08/18/16 9:00:00 CDT Notes: (Same as: Lopressor) Start Date: 07/19/16 Stop Date: 07/21/16 Status: Discontinued metoprolol tartrate 25 mg oral tablet 25 mg=1 tab, PO, Q12H, # 60 tab, 0 Refill(s) Start Date: 07/21/16 Stop Date: 08/20/16 Status: Ordered midazolam (ANES) Route: IV, Drug form: SOLN, ONCE, Stop date: 07/19/16 13:27:00 [employer] Start Date: 07/19/16 Stop Date: 07/19/16 Status: Completed morphine Sulfate 2 mg, 1 mL, Route: IVP, Drug form: INJ, Q4H, Dosing Weight 106.182, kg, PRN Pain Score 7-10, Start date: 07/18/16 20:44:00 [employer], Duration: 30 day, Stop date: 20:43:00 CDT Notes: (Same as:MORPhine Sulfate) Start Date: 07/18/16 Stop Date: 07/21/16 Status: Discontinued Motrin 800 mg, Route: PO, Drug form: TAB, ONCE, Dosing Weight 106.818, kg, Priority: ST AT, Start date: 07/18/16 16:51:00 [employer], Stop date: 07/18/16 16:51:00 [employer]BER Start Date: 07/18/16 Stop Date: 07/18/16 Status: Completed Mucinex 600 mg, 1 tab, Route: PO, Drug form: ERTAB, Q12H, Dosing Weight 106.182, kg, Sta rt date: 07/18/16 21:00:00 [employer], Duration: 30 day, Stop date: 08/17/16 9:00:00 CD T Notes: (Same as: Guaifenesin LA, Humibid LA, Mucinex)"Do Not Crush" Take medica tion with plenty of water. Start Date: 07/18/16 Stop Date: 07/21/16 Status: Discontinued NovoLIN N 50 unit, 0.5 mL, Route: SUB-Q, Drug form: INJ, BID, Dosing Weight 106.182, kg, S tart date: 07/19/16 17:00:00 [employer], Duration: 30 day, Stop date: 08/18/16 9:00:00 CDT Notes: Roll in palms of hands gently; Do not shake vigorously. (Same as: NovoLI N N, Humulin N)Do not hold insulin without contacting prescriber"single patient use only"WASTE: F/P - Black; E - Municipal Trash Bin Stable for 14 days at room temperatureExpires in days from Date Start Date: 07/19/16 Stop Date: 07/21/16 Status: Discontinued NovoLIN N 100 units/mL 50 unit, SUB-Q, BID, 0 Refill(s) Start Date: 07/18/16 Status: Ordered ondansetron 4 mg, 2 mL, Route: IVP, Drug form: INJ, Q6H, Dosing Weight 106.182, kg, PRN Naus ea & Vomiting, Start date: 07/18/16 20:43:00 [employer], Duration: 30 day, Stop date: 08/17/16 20:42:00 CDT Notes: (Same as: Edil) MEDICATION WASTE Product Size: 4 mgProduct Was brittany: ___ mg Start Date: 07/18/16 Stop Date: 07/21/16 Status: Discontinued ondansetron (ANES) Route: IV, Drug form: INJ, ONCE, Stop date: 07/19/16 13:27:00 [employer] Start Date: 07/19/16 Stop Date: 07/19/16 Status: Completed potassium chloride 40 mEq, 2 tab, Route: PO, Drug form: ERTAB, ONCE, Dosing Weight 106.182, kg, Sta rt date: 07/21/16 8:02:00 [employer], Stop date: 07/21/16 8:02:00 [employer] MEMBER Notes: (Same as: [address])"Do Not Crush" With food and full glass of water Start Date: 07/21/16 Stop Date: 07/21/16 Status: Completed potassium chloride 40 mEq, 2 tab, Route: PO, Drug form: ERTAB, ONCE, Dosing Weight 106.182, kg, Sta rt date: 07/19/16 14:45:00 [employer], Stop date: 07/19/16 14:45:00 [employer] MEMBER Notes: (Same as: K-Dur 20)"Do Not Crush" With food and full glass of water Start Date: 07/19/16 Stop Date: 07/19/16 Status: Completed potassium chloride 40 mEq, 2 tab, Route: PO, Drug form: ERTAB, ONCE, Dosing Weight 106.182, kg, Sta rt date: 07/20/16 12:16:00 [employer] MEMBER, Stop date: 07/20/16 12:16:00 [employer]CHE[employer] MEMBER Notes: (Same as: K-Dur 20)"Do Not Crush" With food and full glass of water Start Date: 07/20/16 Stop Date: 07/20/16 Status: Completed propofol (ANES) Route: IV, Drug form: INJ, ONCE, Stop date: 07/19/16 13:27:00 [employer] Start Date: 07/19/16 Stop Date: 07/19/16 Status: Completed Protonix 40 mg, 1 tab, Route: PO, Drug form: ECTAB, Before Breakfast, Dosing Weight 106.1 82, kg, Start date: 07/21/16 7:30:00 [employer], Duration: 30 day, Stop date: 08/19/16 7:30:00 CDT Notes: Tablet should not be chewed or crushed.(Same as: Protonix) Start Date: 07/21/16 Stop Date: 07/21/16 Status: Discontinued Protonix 40 mg, Route: IVP, Drug form: INJ, Before Dinner, Dosing Weight 106.182, kg, Sta rt date: 07/19/16 16:30:00 [employer], Duration: 30 day, Stop date: 08/17/16 16:30:00 C DT Notes: For IV push reconstitute with 10 ml 0.9% sodium chloride and push over 2 minutes. (Same as: Protonix) Start Date: 07/19/16 Stop Date: 07/20/16 Status: Discontinued Rocephin + sodium chloride 0.9% INJ 100 mL 1 gm, Route: IVPB, ONCE, Dosing Weight 106.818, kg, Priority: STAT, Start date: 07/18/16 17:05:00 [employer], Stop date: 07/18/16 17:05:00 [employer] MEMBER Notes: (Same As: Rocephin).Use with 100 mL NS and infuse over 30 min MEDICA TION WASTE Product Size: 1000 mgProduct Wasted: ___ mg Start Date: 07/18/16 Stop Date: 07/18/16 Status: Completed simvastatin 20 mg, 1 tab, Route: PO, Drug form: TAB, Bedtime, Dosing Weight 106.182, kg, Sta rt date: 07/18/16 21:00:00 [employer], Duration: 30 day, Stop date: 08/16/16 21:00:00 C DT Notes: (Same as: Zocor) Start Date: 07/18/16 Stop Date: 07/21/16 Status: Discontinued simvastatin 20 mg oral tablet 20 mg=1 tab, PO, Bedtime, 0 Refill(s) Start Date: 07/18/16 Status: Ordered Sodium Chloride 0.9% (Bolus) IV 1,000 mL, 1,000 ml/hr, Infuse Over: 1 hr, Route: IV, 1,000, Drug form: INJ, ONCE , Priority: STAT, Dosing Weight 106.818 kg, Start date: 07/18/16 17:04:00 [employer], D uration: 1 doses or times, Stop date: 07/18/16 17:04:00 [employer]BER Start Date: 07/18/16 Stop Date: 07/18/16 Status: Completed Sodium Chloride 0.9% (Bolus) IV 1,000 mL, 1,000 ml/hr, Infuse Over: 1 hr, Route: IV, 1,000, Drug form: INJ, ONCE , Priority: STAT, Dosing Weight 106.818 kg, Start date: 07/18/16 16:16:00 [employer]BER, D uration: 1 doses or times, Stop date: 07/18/16 16:16:00 [employer]BER Start Date: 07/18/16 Stop Date: 07/18/16 Status: Completed sodium chloride 0.9% 1000 ml INJ 1,000 mL 1,000 mL, Rate: 125 ml/hr, Infuse over: 8 hr, Route: IV, Dosing Weight 106.182 k g, Total Volume: 1,000, Start date: 07/18/16 20:42:00 [employer]BER, Duration: 30 day, Sto p date: 08/17/16 20:41:00 CDT Start Date: 07/18/16 Stop Date: 07/21/16 Status: Discontinued Tylenol 975 mg, 3 tab, Route: PO, Drug form: TAB, ONCE, Dosing Weight 106.818, kg, Prior ity: STAT, Start date: 07/18/16 18:17:00 [employer], Stop date: 07/18/16 18:17:00 [employer] MEMBER Notes: Do not exceed 4 gm/day. (Same as: Tylenol) Start Date: 07/18/16 Stop Date: 07/18/16 Status: Completed Tylenol 650 mg, 2 tab, Route: PO, Drug form: TAB, Q6H, Dosing Weight 106.182, kg, PRN Fo r Temp > 100.4 F, Start date: 07/19/16 0:30:00 [employer], Duration: 30 day, Stop date: 08/18/16 0:29:00 CDT Notes: Do not exceed 4 gm/day. (Same as: Tylenol) Start Date: 07/19/16 Stop Date: 07/21/16 Status: Discontinued Tylenol with Codeine #3 oral tablet 1 tab, PO, Q6H, PRN Pain Score 6-10, # 20 tab, 0 Refill(s) Start Date: 07/21/16 Stop Date: 07/26/16 Status: Ordered Unknown Home Medication See Instructions, Refill(s) 0 Start Date: 07/18/16 Stop Date: 07/21/16 Status: Discontinued Zofran 4 mg, 2 mL, Route: IVP, Drug form: INJ, ONCE, Dosing Weight 106.818, kg, Start d ate: 07/18/16 16:16:00 [employer], Stop date: 07/18/16 16:16:00 [employer]BER Notes: (Same as: Zofran) MEDICATION WASTE Product Size: 4 mgProduct Was brittany: ___ mg Start Date: 07/18/16 Stop Date: 07/18/16 Status: Completed Results ELECTROLYTES 1 2 3 Most recent to oldest [Reference Range]: 140 mEq/L (07/21/16 5:44 AM) 136 mEq/L (07/20/16 4:46 AM) 134 mEq/L *LOW* (07/19/16 4:25 AM) Sodium Lvl [135-145 mEq/L] 3.2 mEq/L *LOW* (07/21/16 5:44 AM) 3.2 mEq/L *LOW* (07/20/16 4:46 AM) 3.2 mEq/L *LOW* (07/19/16 4:25 AM) Potassium Lvl [3.5-5.1 mEq/L] 106 mEq/L (07/21/16 5:44 AM) 103 mEq/L (07/20/16 4:46 AM) 103 mEq/L (07/19/16 4:25 AM) Chloride Lvl [95-109 mEq/L] 23 mEq/L *LOW* (07/21/16 5:44 AM) 23 mEq/L *LOW* (07/20/16 4:46 AM) 21 mEq/L *LOW* (07/19/16 4:25 AM) CO2 [24-32 mEq/L] 14.2 mEq/L (07/21/16 5:44 AM) 13.2 mEq/L (07/20/16 4:46 AM) 13.2 mEq/L (07/19/16 4:25 AM) AGAP [10.0-20.0 mEq/L] CHEM PANEL 1 2 3 Most recent to oldest [Reference Range]: 0.54 mg/dL (07/21/16 5:44 AM) 0.59 mg/dL (07/20/16 4:46 AM) 0.79 mg/dL (07/19/16 4:25 AM) Creatinine Lvl [0.50-1.40 mg/dL] 106 mL/min/1.73m2 1 *NA* (07/21/16 5:44 AM) 103 mL/min/1.73m2 2 *NA* (07/20/16 4:46 AM) 84 mL/min/1.73m2 3 *NA* (07/19/16 4:25 AM) eGFR 8 mg/dL (07/21/16 5:44 AM) 8 mg/dL (07/20/16 4:46 AM) 14 mg/dL (07/19/16 4:25 AM) BUN [7-22 mg/dL] 15 (07/21/16 5:44 AM) 14 (07/20/16 4:46 AM) B/C Ratio [6-25] 116 mg/dL *HI* (07/21/16 5:44 AM) 128 mg/dL *HI* (07/20/16 4:46 AM) 231 mg/dL *HI* (07/19/16 4:25 AM) Glucose Lvl [70-99 mg/dL] 5.7 g/dL *LOW* (07/21/16 5:44 AM) 6.6 g/dL (07/20/16 4:46 AM) Total Protein [6.4-8.4 g/dL] 2.2 g/dL *LOW* (07/21/16 5:44 AM) 2.3 g/dL *LOW* (07/20/16 4:46 AM) Albumin Lvl [3.5-5.0 g/dL] 3.5 g/dL (07/21/16 5:44 AM) 4.3 g/dL *HI* (07/20/16 4:46 AM) Globulin [2.7-4.2 g/dL] 0.6 *LOW* (07/21/16 5:44 AM) 0.5 *LOW* (07/20/16 4:46 AM) A/G Ratio [0.7-1.6] 7.8 mg/dL *LOW* (07/21/16 5:44 AM) 7.8 mg/dL *LOW* (07/20/16 4:46 AM) 7.8 mg/dL *LOW* (07/19/16 4:25 AM) Calcium Lvl [8.5-10.5 mg/dL] 1.7 mg/dL *LOW* (07/20/16 4:46 AM) Magnesium Lvl [1.8-2.4 mg/dL] 13 unit/L (07/21/16 5:44 AM) 15 unit/L (07/20/16 4:46 AM) ALT [0-65 unit/L] 16 unit/L (07/21/16 5:44 AM) 17 unit/L (07/20/16 4:46 AM) AST [0-37 unit/L] 86 unit/L (07/21/16 5:44 AM) 85 unit/L (07/20/16 4:46 AM) Alk Phos [39-136 unit/L] 0.6 mg/dL (07/21/16 5:44 AM) 1.1 mg/dL (07/20/16 4:46 AM) Bili Total [0.2-1.3 mg/dL] 65 unit/L *LOW* (07/20/16 4:46 AM) Lipase Lvl [73-393 unit/L] 0.7 mMol/L (07/21/16 5:44 AM) 1.6 mMol/L (07/18/16 7:07 PM) 2.3 mMol/L *HI* (07/18/16 5:25 PM) Lactic Acid Lvl [0.5-2.2 mMol/L] 1Result Comment: The eGFR is calculated using the [...] from the National Kidney Disease Education Program ( NKDEP) which additionally recommends that when the eGFR is used in patients with extremes of body mass index for purposes of drug dosing, the eGFR should be mul tiplied by the estimated BMI. 2Result Comment: The eGFR is calculated using the [...] from the National Kid[employer] Disease Education Program ( NKDEP) which additionally recommends that when the eGFR is used in patients with extremes of body mass index for purposes of drug dosing, the eGFR should be mul tiplied by the estimated BMI. 3Result Comment: The eGFR is calculated using the [...] from the National Kidney Disease Education Program ( NKDEP) which additionally recommends that when the eGFR is used in patients with extremes of body mass index for purposes of drug dosing, the eGFR should be mul tiplied by the estimated BMI. LIPIDS 1 2 3 Most recent to oldest [Reference Range]: 9.25 *HI* (07/20/16 4:46 AM) CHD Risk [3.90-5.80] 111 mg/dL (07/20/16 4:46 AM) Chol [<=199 mg/dL] 259 mg/dL *HI* (07/20/16 4:46 AM) Trig [<=149 mg/dL] 12 mg/dL *LOW* (07/20/16 4:46 AM) HDL [>=61 mg/dL] 47 mg/dL (07/20/16 4:46 AM) LDL (Calculated) [<=99 mg/dL] 52 *NA* (07/20/16 4:46 AM) VLDL SPECIAL CHEMISTRY 1 2 3 Most recent to oldest [Reference Range]: 7.3 % *HI* (07/20/16 4:46 AM) Hgb A1C [<=5.6 %] ANEMIA STUDY 1 2 3 Most recent to oldest [Reference Range]: 17 ug/dl *LOW* (07/20/16 4:46 AM) Iron [30-160 ug/dl] 200 ng/mL (07/20/16 4:46 AM) Ferritin Lvl [5-204 ng/mL] 8 % *LOW* (07/20/16 4:46 AM) % Satur Fe [12-57 %] 193 ug/dl (07/20/16 4:46 AM) UIBC [110-370 ug/dl] 210 ug/dl *LOW* (07/20/16 4:46 AM) TIBC [228-428 ug/dl] URINE AND STOOL 1 2 3 Most recent to oldest [Reference Range]: Marked *ABN* (07/18/16 5:03 PM) UA Turbidity [Clear] Tiana *NA* (07/18/16 5:03 PM) UA Color 6.0 (07/18/16 5:03 PM) UA pH [5.0-8.0] 1.024 (07/18/16 5:03 PM) UA Spec Grav [<=1.030] 500 mg/dL *ABN* (07/18/16 5:03 PM) UA Glucose [Negative mg/dL] Moderate *ABN* (07/18/16 5:03 PM) UA Blood [Negative] Trace mg/dL *ABN* (07/18/16 5:03 PM) UA Ketones [Negative mg/dL] 100 mg/dL *ABN* (07/18/16 5:03 PM) UA Protein [Negative mg/dL] 4.0 mg/dL *HI* (07/18/16 5:03 PM) UA Urobilinogen [0.1-1.0 mg/dL] Negative *NA* (07/18/16 5:03 PM) UA Bili [Negative] Large *ABN* (07/18/16 5:03 PM) UA Leuk Est [Negative] Positive *ABN* (07/18/16 5:03 PM) UA Nitrite [Negative] >182 /HPF *HI* (07/18/16 5:03 PM) UA WBC [0-5 /HPF] 38 /HPF *HI* (07/18/16 5:03 PM) UA RBC [0-2 /HPF] Occasional /HPF *NA* (07/18/16 5:03 PM) UA Bacteria [None Seen /HPF] None Seen *NA* (07/18/16 5:03 PM) UA Sq Epi HEMATOLOGY 1 2 3 Most recent to oldest [Reference Range]: 6.4 K/CMM (07/21/16 5:44 AM) 7.2 K/CMM (07/20/16 4:46 AM) 7.6 K/CMM (07/19/16 4:25 AM) WBC [3.7-10.4 K/CMM] 3.59 M/CMM *LOW* (07/21/16 5:44 AM) 3.80 M/CMM *LOW* (07/20/16 4:46 AM) 3.86 M/CMM *LOW* (07/19/16 4:25 AM) RBC [4.20-5.40 M/CMM] 10.1 g/dL *LOW* (07/21/16 5:44 AM) 10.8 g/dL *LOW* (07/20/16 4:46 AM) 10.9 g/dL *LOW* (07/19/16 4:25 AM) Hgb [12.0-16.0 g/dL] 29.5 % *LOW* (07/21/16 5:44 AM) 31.5 % *LOW* (07/20/16 4:46 AM) 32.1 % *LOW* (07/19/16 4:25 AM) Hct [36.0-48.0 %] 82.1 fL (07/21/16 5:44 AM) 82.8 fL (07/20/16 4:46 AM) 83.3 fL (07/19/16 4:25 AM) MCV [80.0-98.0 fL] 28.3 pg (07/21/16 5:44 AM) 28.5 pg (07/20/16 4:46 AM) 28.2 pg (07/19/16 4:25 AM) MCH [27.0-31.0 pg] 34.4 g/dL (07/21/16 5:44 AM) 34.4 g/dL (07/20/16 4:46 AM) 33.9 g/dL (07/19/16 4:25 AM) MCHC [32.0-36.0 g/dL] 14.5 % (07/21/16 5:44 AM) 14.4 % (07/20/16 4:46 AM) 14.3 % (07/19/16 4:25 AM) RDW [11.5-14.5 %] 208 K/CMM (07/21/16 5:44 AM) 210 K/CMM (07/20/16 4:46 AM) 194 K/CMM (07/19/16 4:25 AM) Platelet [133-450 K/CMM] 8.6 fL (07/21/16 5:44 AM) 8.7 fL (07/20/16 4:46 AM) 8.6 fL (07/19/16 4:25 AM) MPV [7.4-10.4 fL] 64.1 % (07/21/16 5:44 AM) 76.0 % *HI* (07/20/16 4:46 AM) 86.6 % *HI* (07/18/16 4:47 PM) Segs [45.0-75.0 %] 5.0 % (07/20/16 4:46 AM) Bands [0.0-11.0 %] 22.9 % (07/21/16 5:44 AM) 11.0 % *LOW* (07/20/16 4:46 AM) 6.7 % *LOW* (07/18/16 4:47 PM) Lymphocytes [20.0-40.0 %] 0.0 % (07/20/16 4:46 AM) Atypical Lymphs [<=0.0 %] 12.3 % *HI* (07/21/16 5:44 AM) 8.0 % (07/20/16 4:46 AM) 6.6 % (07/18/16 4:47 PM) Monocytes [2.0-12.0 %] 0.5 % (07/21/16 5:44 AM) Eosinophils [0.0-4.0 %] 0.2 % (07/21/16 5:44 AM) 0.1 % (07/18/16 4:47 PM) Basophils [0.0-1.0 %] 4.1 K/CMM (07/21/16 5:44 AM) 5.8 K/CMM (07/20/16 4:46 AM) 13.2 K/CMM *HI* (07/18/16 4:47 PM) Segs-Bands # [1.5-8.1 K/CMM] 1.5 K/CMM (07/21/16 5:44 AM) 0.8 K/CMM *LOW* (07/20/16 4:46 AM) 1.0 K/CMM (07/18/16 4:47 PM) Lymphocytes # [1.0-5.5 K/CMM] 0.8 K/CMM (07/21/16 5:44 AM) 0.6 K/CMM (07/20/16 4:46 AM) 1.0 K/CMM *HI* (07/18/16 4:47 PM) Monocytes # [0.0-0.8 K/CMM] 100 *NA* (07/20/16 4:46 AM) Tot Cell Ct Normal (07/20/16 4:46 AM) RBC Morph Normal (07/20/16 4:46 AM) Plt Morph RAPID 1 2 3 Most recent to oldest [Reference Range]: Negative (07/18/16 4:47 PM) Grp A Strep Scr [Negative] VIRAL - SEROLOGY 1 2 3 Most recent to oldest [Reference Range]: Negative (07/18/16 4:47 PM) Influ A [Negative] Negative (07/18/16 4:47 PM) Influ B [Negative] Immunizations No data available for this section Procedures Procedure Date Related Diagnosis Body Site Caesarean section Cholecystectomy Exploration of carpal tunnel TORIBIO BSO - Total abdominal hysterectomy and bilateral salpingo-oophorectomy Social History Social History Type Response Substance Abuse Use: None. Alcohol Never Smoking Status Never smoker; Ready to change: No; Concerns about tobacco use in household: No; Exposure to Tobacco Smoke None; Cigarette Smoking Last 365 Days No; Reg Smoking Cessation Counseling No Assessment and Plan Extracted from: Title: Urology Note Author: Deshawn Childress Date: 07/21/16 Progress Note - Daily [facility] Completed: Jul, 10:46 by Deshawn Childress MD RM: 121 - 2W, SE P1UUOAARANELIER MANEA56y (: 1960) F Attending: Rajan Dawn MDPhone: Service: Internal Medicine Reason for Admission: ACUTE PYELONEPHRITIS, KIDNEY STONE, LEUKOCYTOSIS Working DRG: None Documented Code status: None Specified=FULL CODECurrent diet: Isolation: None Documented Allergies: NKDA SUBJECTIVE Doing well. OBJECTIVE : no cva tenderness. 24hr Labs 07/21 0813 Glucose KNC735 H 07/21 0544 Lactic Acid Lvl0.7 Sodium Los395 Potassium Lvl3.2 L Chloride Djw681 CO223 L AGAP14.2 Glucose Bfq891 H Creatinine Lvl0.54 BUN8 B/C Ratio15 Total Protein5.7 L Albumin Lvl2.2 L Globulin3.5 A/G Ratio0.6 L Calcium Lvl7.8 L ALT13 AST16 Alk Phos86 Bili Total0.6 wTKR356 WBC6.4 RBC3.59 L Hgb10.1 L Hct29.5 L MCV82.1 MCH28.3 MCHC34.4 RDW14.5 Pthyejkx064 MPV8.6 Segs64.1 Lwqktefro11.3 H Wywoikrillw54.9 Eosinophils0.5 Basophils0.2 Segs-Bands #4.1 Lymphocytes #1.5 Monocytes #0.8 07/20 2025 Glucose JYD601 H 07/20 1716 Glucose OCT207 H 07/20 1241 Glucose YTW659 H 07/20 0446 Ferritin Vaz414 Iron17 L % Satur Fe8 L SNLJ306 L WAHZ437 Portillo still necessary (Yes/No): Line still necessary (Yes/No): VitalsTmp(F)YjefhEOSRHtQ2ZFM4 07/21 07:5798.388474/466486--- 07/21 04:0099.393569/7619------ 07/21 00:930360887/407378--- 07/20 22:05 1698 21% 07/20 20:[id number]/104349--- 24 Hr Tmax: 100F (37.78c) at 07/20 20:00Vital Signs are the last 5 in the past 48 hours. DateWt(kg)Wt(lb)Ht(cm)Ht(in)Method 07/18 (initial)106.82 235.00Estimated 65.10 65.00Stated I&ORecordInOutBal 07/2023hr Tot 155 0 155 07/1923hr Tot 2208 [id number] Medications (25) Active Scheduled Meds (9): 07/18/16 cefepime + sodium chloride 0.9% INJ 100 mL 1 gm IV ABXQ8H 25 ml/hr 07/18/16 gentamicin 120 mg IV GCOD66U 200 ml/hr 07/18/16 guaiFENesin (Mucinex) 600 mg PO Q12H 07/19/16 heparin 5,000 unit SUB-Q Q8H 07/19/16 insulin isophane (NovoLIN N) 50 unit SUB-Q BID 07/19/16 lisinopril 10 mg PO Daily 07/19/16 metoprolol (metoprolol tartrate) 25 mg PO Q12H 07/21/16 pantoprazole (Protonix) 40 mg PO Before Breakfast 07/18/16 simvastatin 20 mg PO Bedtime Unscheduled Meds: None PRN Meds (12): 07/18/16 Dextrose 50% in Water IV (Dextrose 50% Syringe) 12.5 gm IVP PRN 07/18/16 Dextrose 50% in Water IV (Dextrose 50% Syringe) 25 gm IVP PRN 07/19/16 acetaminophen (Tylenol) 650 mg PO Q6H 07/18/16 albuterol-ipratropium (DuoNeb inhalation solution) 3 ml NEB PRN 07/18/16 glucagon 1 mg IM PRN 07/18/16 insulin aspart 2 unit SUB-Q TID-Before Meals 07/18/16 insulin aspart 4 unit SUB-Q TID-Before Meals 07/18/16 insulin aspart 6 unit SUB-Q TID-Before Meals 07/18/16 insulin aspart 8 unit SUB-Q TID-Before Meals 07/18/16 insulin aspart 10 unit SUB-Q TID-Before Meals 07/18/16 morphine Sulfate 2 mg IVP Q4H 07/18/16 ondansetron 4 mg IVP Q6H One Time Meds (3): 07/20/16 (Completed) magnesium sulfate (magnesium sulfate 2gm / NS 50ml (premixed)) 2 gm IVPB ONCE 25 ml/hr 07/20/16 (Completed) potassium chloride 40 mEq PO ONCE 07/21/16 (Completed) potassium chloride 40 mEq PO ONCE Continuous Infusions (1): 07/18/16 sodium chloride 0.9% 1000 ml INJ 1,000 mL 1,000 mL 125 ml/hr ASSESSMENT & PLAN: 56 yo F with right renal stone s/p stent placement. Doing well. -- Patient with gold card. Attempted to schedule follow up appointment with [facility] Urology clinic, but unable to do so secondary to patient's outstanding balance with hospital. Patient expressed that she will clear the outstanding balance this week. [facility] clinic info provided. -- Will set up appointment to follow up with Dr. Casanova in 2 weeks with preclinic [facility], just in case. -- Patient ok for discharge from urology standpoint. Discussed with Dr. Casanova.
--- OUTSIDE RECORDS SUMMARY | 2018-03-23 06:26 | XMS REPORT ---
Author Author [facility] Address Unknown Phone Unavailable Care Team Providers Care Paste Up Artist Name Role Phone Unavailable Unavailable Problems This patient has no known problems. Allergies, Adverse Reactions, Alerts This patient has no known allergies or adverse reactions. Medications This patient has no known medications. Encounters Start Date/Time End Date/Time Encounter Type Admission Type Attending [facility] Facility Care Department Encounter ID 2018-05-18 00:00:00 2018-05-18 00:00:00 Outpatient [facility] [id number] 2018-04-05 00:00:00 2018-04-05 00:00:00 Outpatient [facility] [id number] 2018-03-26 00:00:00 2018-03-26 00:00:00 Outpatient [facility] [id number] 2018-03-16 13:42:58 2018-03-16 13:42:58 Outpatient [facility] [id number] 2018-03-05 08:10:42 2018-03-05 08:10:42 Outpatient [facility] [id number] 2018-03-05 00:00:00 2018-03-05 00:00:00 Outpatient [facility] [id number] 2018-03-05 00:00:00 2018-03-05 00:00:00 Outpatient [facility] [id number] 2018-03-05 00:00:00 2018-03-05 00:00:00 Emergency [facility] [id number] 2018-03-03 00:00:00 2018-03-03 00:00:00 Outpatient [facility] [id number] 2018-03-02 10:21:08 2018-03-02 10:21:08 Outpatient [facility] [id number] 2018-03-02 09:13:27 2018-03-02 09:13:27 Outpatient [facility] [id number] 2018-03-02 00:00:00 2018-03-02 00:00:00 Outpatient [facility] [id number] 2018-02-26 00:00:00 2018-02-26 00:00:00 Outpatient [facility] [id number] 2018-02-19 00:00:00 2018-02-19 00:00:00 Outpatient [facility] [id number] 2018-02-19 00:00:00 2018-02-19 00:00:00 Outpatient [facility] [id number] 2018-02-12 12:43:37 2018-02-12 12:43:37 Outpatient [facility] [id number] 2018-02-11 08:57:10 2018-02-11 08:57:10 Outpatient [facility] [id number] 2018-02-11 06:32:58 2018-02-11 06:32:58 Outpatient [facility] [id number] 2018-02-05 08:47:21 2018-02-05 08:47:21 Outpatient [facility] [id number] 2018-02-05 00:00:00 2018-02-05 00:00:00 Outpatient [facility] [id number] 2018-02-04 11:28:56 2018-02-04 11:28:56 Outpatient [facility] [id number] 2018-02-04 10:37:47 2018-02-04 10:37:47 Outpatient [facility] [id number] 2018-02-04 00:00:00 2018-02-04 00:00:00 Outpatient [facility] [id number] 2018-02-02 00:00:00 2018-02-02 00:00:00 Outpatient [facility] [id number] 2018-01-28 00:00:00 2018-01-28 00:00:00 Outpatient [facility] [id number] 2018-01-28 00:00:00 2018-01-28 00:00:00 Outpatient [facility] [id number] 2018-01-01 00:00:00 2018-01-01 00:00:00 Outpatient [facility] [id number] 2018-01-01 00:00:00 2018-01-01 00:00:00 Outpatient [facility] [id number] 2017-12-23 12:47:13 2017-12-23 12:47:13 Outpatient [facility] [id number] 2017-11-17 00:00:00 2017-11-17 00:00:00 Outpatient [facility] [id number] 2017-08-18 12:36:21 2017-08-18 12:36:21 Outpatient [facility] [id number] 2017-08-07 00:00:00 2017-08-07 00:00:00 Outpatient [facility] [id number] 2017-07-24 08:07:56 2017-07-24 08:07:56 Outpatient [facility] [id number] 2017-07-08 00:00:00 2017-07-08 00:00:00 Outpatient [facility] [id number] 2017-07-03 09:08:36 2017-07-03 09:08:36 Outpatient [facility] [id number] 2017-06-25 08:55:35 2017-06-25 08:55:35 Outpatient [facility] [id number] 2017-06-24 09:39:13 2017-06-24 09:39:13 Outpatient [facility] [id number] 2017-06-12 00:00:00 2017-06-12 00:00:00 Outpatient [facility] [id number] 2017-06-10 09:28:04 2017-06-10 09:28:04 Outpatient [facility] [id number] 2017-06-05 11:45:16 2017-06-05 11:45:16 Outpatient [facility] [id number] 2017-06-02 00:00:00 2017-06-02 00:00:00 Outpatient [facility] [id number] 2017-05-13 08:00:57 2017-05-13 08:00:57 Outpatient [facility] [id number] 2017-05-07 07:56:18 2017-05-07 07:56:18 Outpatient [facility] [id number] 2017-05-06 00:00:00 2017-05-06 00:00:00 Outpatient [facility] [id number] 2017-05-01 09:45:17 2017-05-01 09:45:17 Outpatient [facility] [id number] 2017-05-01 08:35:18 2017-05-01 08:35:18 Outpatient [facility] [id number] 2017-04-30 15:16:48 2017-04-30 15:16:48 Outpatient [facility] [id number] 2017-03-20 00:00:00 2017-03-20 00:00:00 Outpatient [facility] [id number] 2017-03-19 00:00:00 2017-03-19 00:00:00 Outpatient [facility] [id number] 2017-03-12 13:40:52 2017-03-12 13:40:52 Outpatient [facility] [id number] 2017-03-12 11:45:44 2017-03-12 11:45:44 Outpatient [facility] [id number] 2017-03-12 11:13:28 2017-03-12 11:13:28 Outpatient [facility] [id number] 2017-03-10 15:46:49 2017-03-10 15:46:49 Outpatient [facility] [id number] 2017-03-09 11:11:12 2017-03-09 11:11:12 Outpatient [facility] [id number] 2017-03-09 10:24:15 2017-03-09 10:24:15 Outpatient [facility] [id number] 2017-03-02 10:08:57 2017-03-02 10:08:57 Outpatient [facility] [id number] 2017-02-27 10:02:34 2017-02-27 10:02:34 Outpatient [facility] [id number] 2017-02-27 08:28:17 2017-02-27 08:28:17 Outpatient [facility] [id number] 2017-02-27 00:00:00 2017-02-27 00:00:00 Outpatient [facility] [id number] 2017-02-06 13:08:35 2017-02-06 13:08:35 Outpatient [facility] [id number] 2017-01-14 00:00:00 2017-01-14 00:00:00 Outpatient [facility] [id number] 2016-12-12 08:49:55 2016-12-12 08:49:55 Outpatient [facility] [id number] 2016-12-12 08:21:30 2016-12-12 08:21:30 Outpatient [facility] [id number] 2016-11-25 00:00:00 2016-11-25 00:00:00 Outpatient [facility] [id number] 2016-11-12 09:33:08 2016-11-12 09:33:08 Outpatient [facility] [id number] 2016-11-12 09:01:49 2016-11-12 09:01:49 Outpatient [facility] [id number] 2016-11-12 08:01:35 2016-11-12 08:01:35 Outpatient [facility] [id number] 2016-11-11 09:22:35 2016-11-11 09:22:35 Outpatient [facility] [id number] 2016-10-31 18:42:01 2016-10-31 18:42:01 Emergency [facility] [id number] 2016-10-31 17:22:19 2016-10-31 17:22:19 Emergency [facility] [id number] 2016-10-31 15:32:45 2016-10-31 15:32:45 Emergency [facility] [id number] 2016-10-31 14:15:10 2016-10-31 14:15:10 Emergency [facility] [id number] 2016-10-31 00:00:00 2016-10-31 00:00:00 Outpatient [facility] [id number] 2016-10-25 19:38:42 2016-10-25 19:38:42 Emergency [facility] [id number] 2016-10-23 14:34:29 2016-10-23 14:34:29 Outpatient [facility] [id number] 2016-10-23 06:00:00 2016-10-23 06:00:00 Outpatient [facility] [id number] 2016-10-22 06:47:48 2016-10-22 06:47:48 Outpatient [facility] [id number] 2016-10-17 09:40:34 2016-10-17 09:40:34 Outpatient [facility] [id number] 2016-10-17 08:59:18 2016-10-17 08:59:18 Outpatient [facility] [id number] 2016-10-10 08:33:31 2016-10-10 08:33:31 Outpatient [facility] [id number] 2016-10-10 08:28:10 2016-10-10 08:28:10 Outpatient [facility] [id number] 2016-07-25 08:03:01 2016-07-25 08:03:01 Emergency [facility] [id number] 2016-07-25 05:36:03 2016-07-25 05:36:03 Outpatient [facility] [id number] 2016-07-25 00:00:00 2016-07-25 00:00:00 Emergency [facility] [id number]
[2018-03-23 10:10] VITALS: BP 123/68
== END | disposition home or self-care (01) ==
LOC: OR 06:23
PROVIDERS: ATTEND Internal Medicine Gastroenterology
DX: K29.60 Other gastritis without bleeding (principal); K29.50 Unspecified chronic gastritis without bleeding; K29.80 Duodenitis without bleeding; K44.9 Diaphragmatic hernia without obstruction or gangrene; I10 Essential (primary) hypertension; E78.00 Pure hypercholesterolemia, unspecified; E11.9 Type 2 diabetes mellitus without complications; J45.909 Unspecified asthma, uncomplicated; G47.33 Obstructive sleep apnea (adult) (pediatric); E66.01 Morbid (severe) obesity due to excess calories; Z88.1 Allergy status to other antibiotic agents; Z91.041 Radiographic dye allergy status; Z01.810 Encounter for preprocedural cardiovascular examination; Z01.812 Encounter for preprocedural laboratory examination; Z79.4 Long term (current) use of insulin; Z68.41 Body mass index [BMI] 40.0-44.9, adult; Z80.0 Family history of malignant neoplasm of digestive organs
CPT/HCPCS: 36415 ×2; 43239; 82948; 85025; 88305; 88312; 93005; J2250

== ENCOUNTER → 2018-03-30 | Day surgery (SDC) | payer MEDICARE ==
[~2018-03-30] MED LIST changes: +ONDANSETRON HCL INJ 2 MG/ML VIAL ONE
[2018-03-30 09:45] VITALS: BP 146/82
== END | disposition home or self-care (01) ==
LOC: OR 08:09
PROVIDERS: ATTEND Internal Medicine Gastroenterology
DX: Z12.11 Encounter for screening for malignant neoplasm of colon (principal); D12.0 Benign neoplasm of cecum; D12.3 Benign neoplasm of transverse colon; D12.5 Benign neoplasm of sigmoid colon; K64.1 Second degree hemorrhoids; K29.60 Other gastritis without bleeding; K44.9 Diaphragmatic hernia without obstruction or gangrene; I10 Essential (primary) hypertension; E78.00 Pure hypercholesterolemia, unspecified; E11.9 Type 2 diabetes mellitus without complications; J45.909 Unspecified asthma, uncomplicated; Z88.3 Allergy status to other anti-infective agents; Z91.041 Radiographic dye allergy status; Z79.4 Long term (current) use of insulin; Z68.41 Body mass index [BMI] 40.0-44.9, adult; Z87.442 Personal history of urinary calculi; Z80.0 Family history of malignant neoplasm of digestive organs
CPT/HCPCS: 36415; 45384; 82948; 88305; J2250; J2405; 45378

== ENCOUNTER 2018-07-06 16:28 | Emergency (ER) | payer MEDICARE ==
[~2018-07-06] VITALS: Ht 157.5 cm; Wt 106.6 kg
[~2018-07-06 16:28] MED LIST changes: -FENTANYL CITRATE/PF 100MCG/2 ML INJ ONE; -MIDAZOLAM HCL 2 MG/2 ML VIAL ONE; -ONDANSETRON HCL INJ 2 MG/ML VIAL ONE; -PROPOFOL IV EMULSION 10 MG/ML 50 ML VIAL ONE
--- OUTSIDE RECORDS SUMMARY | 2018-07-06 16:32 | XMS REPORT | Continuity of Care Document ---
Author Author [facility] Interface Address Unknown Phone Unavailable Problems Problem Status Onset Date Classification Date Reported Comments Source COUGH X2 WEEKS Active 07/18/2016 [facility] ACUTE PYELONEPHRITIS, KIDNEY STONE, LEUK Active 07/18/2016 [facility] DM (<span ID="[id number]">Confirmed</span>) Active Problem 07/24/2016 [facility] Diabetes Resolved Problem 07/24/2016 [facility] Hyperlipidemia Active Problem 07/24/2016 [facility] HTN (<span ID="[id number]">Confirmed</span>) Active Problem 07/24/2016 [facility] HTN (<span ID="[id number]">Confirmed</span>) Resolved Problem 07/24/2016 [facility] ACUTE PYELONEPHRITIS Active [facility] CALCULUS OF KIDNEY Active [facility] Medications Medication Details Route Status Patient Instructions Ordering Provider Order Date Source Acetaminophen 300 MG / Codeine Phosphate 30 MG Oral Tablet [Tylenol with Codeine #3] 1 tab, PO, Q6H, PRN Pain Score 6-10, # 20 tab, 0 Refill(s) Active 07/21/2016 [facility] lactobacillus acidophilus-lactobacillus casei oral delayed release capsule 1 tab, PO, BID, # 28 tab, 0 Refill(s) Active 07/21/2016 [facility] Ciprofloxacin 500 MG Oral Tablet [Cipro] 500 mg=1 tab, PO, Q12H, X 14 day, # 28 tab, 0 Refill(s) Active 07/21/2016 [facility] metoprolol tartrate 25 mg oral tablet 25 mg=1 tab, PO, Q12H, # 60 tab, 0 Refill(s) Active 07/21/2016 [facility] lisinopril 5 mg oral tablet 10 mg=2 tab, PO, Daily, # 60 tab, 0 Refill(s) Active 07/21/2016 [facility] guaiFENesin 600 mg oral tablet, extended release 600 mg=1 tab, PO, Q12H, PRN Cough, X 7 day, # 14 tab, 0 Refill(s) Active 07/21/2016 [facility] potassium chloride 40 mEq, 2 tab, Route: PO, Drug form: ERTAB, ONCE, Dosing Weight 106.182, kg, Start date: 07/21/16 8:02:00 BEAD INSPECTOR, Stop date: 07/21/16 8:02:00 CSTNotes: (Same as: K-Dur 20) "Do Not Crush" With food and full glass of water Inactive 07/21/2016 [facility] Protonix 40 mg, 1 tab, Route: PO, Drug form: ECTAB, Before Breakfast, Dosing Weight 106.182, kg, Start date: 07/21/16 7:30:00 BEAD INSPECTOR, Duration: 30 day, Stop date: 08/19/16 7:30:00 CDTNotes: Tablet should not be chewed or crushed. (Same as: Protonix) Inactive 07/21/2016 [facility] potassium chloride 40 mEq, 2 tab, Route: PO, Drug form: ERTAB, ONCE, Dosing Weight 106.182, kg, Start date: 07/20/16 12:16:00 BEAD INSPECTOR, Stop date: 07/20/16 12:16:00 CSTNotes: (Same as: K-Dur 20) "Do Not Crush" With food and full glass of water Inactive 07/20/2016 [facility] Magnesium Sulfate 2 gm, 50 mL, Route: IVPB, Drug form: INJ, ONCE, Dosing Weight 106.182, kg, Start date: 07/20/16 12:15:00 BEAD INSPECTOR, Duration: 2 hr, Stop date: 07/20/16 12:15:00 CSTNotes: WASTE: F/P - Sink; E - [employer] Trash Bin Inactive 07/20/2016 [facility] metoprolol tartrate 25 mg, 1 tab, Route: PO, Drug form: TAB, Q12H, Dosing Weight 106.182, kg, Start date: 07/19/16 21:00:00 BEAD INSPECTOR, Duration: 30 day, Stop date: 08/18/16 9:00:00 CDTNotes: (Same as: Lopressor) No Longer Active 07/20/2016 [facility] Novolin N 50 unit, 0.5 mL, Route: SUB-Q, Drug form: INJ, BID, Dosing Weight 106.182, kg, Start date: 07/19/16 17:00:00 BEAD INSPECTOR, Duration: 30 day, Stop date: 08/18/16 9:00:00 CDTNotes: Roll in palms of hands gently; Do not shake vigorously. (Same as: NovoLIN N, Humulin N) Do not hold insulin without contacting prescriber "single patient use only" WASTE: F/P - Black; E - Municipal Trash Bin Stable for 14 days at room temperature Expires in days from Date No Longer Active 07/19/2016 [facility] Protonix 40 mg, Route: IVP, Drug form: INJ, Before Dinner, Dosing Weight 106.182, kg, Start date: 07/19/16 16:30:00 BEAD INSPECTOR, Duration: 30 day, Stop date: 08/17/16 16:30:00 CDTNotes: For IV push reconstitute with 10 ml 0.9% sodium chloride and push over 2 minutes. (Same as: Protonix) No Longer Active 07/19/2016 [facility] potassium chloride 40 mEq, 2 tab, Route: PO, Drug form: ERTAB, ONCE, Dosing Weight 106.182, kg, Start date: 07/19/16 14:45:00 BEAD INSPECTOR, Stop date: 07/19/16 14:45:00 CSTNotes: (Same as: K-Dur 20) "Do Not Crush" With food and full glass of water Inactive 07/19/2016 [facility] fentaNYL (ANES) Route: IV, Drug form: INJ, ONCE, Stop date: 07/19/16 13:27:00 BEAD INSPECTOR Inactive 07/19/2016 [facility] ondansetron (ANES) Route: IV, Drug form: INJ, ONCE, Stop date: 07/19/16 13:27:00 BEAD INSPECTOR Inactive 07/19/2016 [facility] hydromorphone (ANES) Route: IV, Drug form: INJ, ONCE, Stop date: 07/19/16 13:27:00 BEAD INSPECTOR Inactive 07/19/2016 [facility] propofol (ANES) Route: IV, Drug form: INJ, ONCE, Stop date: 07/19/16 13:27:00 BEAD INSPECTOR Inactive 07/19/2016 [facility] lidocaine (ANES) Route: IV, Drug form: INJ, ONCE, Stop date: 07/19/16 13:27:00 BEAD INSPECTOR Inactive 07/19/2016 [facility] midazolam (ANES) Route: IV, Drug form: SOLN, ONCE, Stop date: 07/19/16 13:27:00 BEAD INSPECTOR Inactive 07/19/2016 [facility] cefepime (ANES) Route: IV, Drug form: INJ, ONCE, Stop date: 07/19/16 13:27:00 BEAD INSPECTOR Inactive 07/19/2016 [facility] LR 1000 mL INJ (ANES) Route: IV, Total Volume: 1,000, Start date: 07/19/16 12:43:00 BEAD INSPECTOR, Stop date: 07/19/16 13:43:00 BEAD INSPECTOR Inactive 07/19/2016 [facility] Insulin regular 2 unit, Route: IV, ONCE, Dosing Weight 106.182, kg, Start date: 07/19/16 12:32:00 BEAD INSPECTOR, Stop date: 07/19/16 12:32:00 BEAD INSPECTOR Inactive 07/19/2016 [facility] Insulin regular 2 unit, 0.02 mL, Route: IV, Drug form: INJ, ONCE, Dosing Weight 106.182, kg, Start date: 07/19/16 11:25:00 BEAD INSPECTOR, Stop date: 07/19/16 11:25:00 CSTNotes: (Same as: Humulin R and NovoLIN R) WASTE: F/P - Black; E - Municipal Trash Bin (Do not shake) Inactive 07/19/2016 [facility] Lisinopril 10 mg, 2 tab, Route: PO, Drug form: TAB, Daily, Dosing Weight 106.182, kg, Start date: 07/19/16 9:00:00 BEAD INSPECTOR, Duration: 30 day, Stop date: 08/17/16 9:00:00 CDTNotes: (Same as: Prinivil, Zestril) No Longer Active 07/19/2016 [facility] Tylenol 650 mg, 2 tab, Route: PO, Drug form: TAB, Q6H, Dosing Weight 106.182, kg, PRN For Temp > 100.4 F, Start date: 07/19/16 0:30:00 BEAD INSPECTOR, Duration: 30 day, Stop date: 08/18/16 0:29:00 CDTNotes: Do not exceed 4 gm/day. (Same as: Tylenol) No Longer Active 07/19/2016 [facility] heparin 5,000 unit, 1 mL, Route: SUB-Q, Drug form: INJ, Q8H, Dosing Weight 106.182, kg, Start date: 07/19/16 0:00:00 BEAD INSPECTOR, Duration: 30 day, Stop date: 08/17/16 16:00:00 CDTNotes: porcine heparin No Longer Active 07/19/2016 [facility] Gentamicin Sulfate (CUSTODIAL) 120 mg, 100 mL, Route: IV, Drug form: INJ, [id number], Dosing Weight 106.182, kg, Start date: 07/18/16 22:00:00 BEAD INSPECTOR, Duration: 30 day, Stop date: 08/17/16 10:00:00 CDTNotes: TIME CRITICAL MEDICATION (Same as Garamycin) No Longer Active 07/19/2016 [facility] Dextrose 50% Syringe 25 gm, 50 mL, Route: IVP, Drug Form: INJ, Dosing Weight 106.182, kg, PRN, PRN Blood Glucose Results, Start date: 07/18/16 21:34:00 BEAD INSPECTOR, Duration: 30 day, Stop date: 08/17/16 22:33:00 CDT No Longer Active 07/19/2016 [facility] Glucagon 1 mg, Route: IM, Drug form: PDR/INJ, PRN, Dosing Weight 106.182, kg, PRN Blood Glucose Results, Start date: 07/18/16 21:34:00 BEAD INSPECTOR, Duration: 30 day, Stop date: 08/17/16 22:33:00 CDT No Longer Active 07/19/2016 [facility] Insulin, Aspart, Human 8 unit, 0.08 mL, Route: SUB-Q, Drug form: SOLN, TID-Before Meals, Dosing Weight 106.182, kg, PRN Blood Glucose Results, Start date: 07/18/16 21:34:00 BEAD INSPECTOR, Duration: 30 day, Stop date: 08/17/16 21:33:00 CDTNotes: Roll in palms of hands gently; Do not shake vigorously. (Same as: NovoLOG) "single patient use only" WASTE: F/P - Black; E - Municipal Trash Bin Stable for 28 days at room temperature. Expires in days from Date No Longer Active 07/19/2016 [facility] Simvastatin 20 mg, 1 tab, Route: PO, Drug form: TAB, Bedtime, Dosing Weight 106.182, kg, Start date: 07/18/16 21:00:00 BEAD INSPECTOR, Duration: 30 day, Stop date: 08/16/16 21:00:00 CDTNotes: (Same as: Zocor) No Longer Active 07/19/2016 [facility] cefepime 1 gm, Route: IV, ABXQ8H, Dosing Weight 106.182, kg, (For CrCl > /=50 ml/min), Start date: 07/18/16 21:00:00 BEAD INSPECTOR, Duration: 30 day, Stop date: 08/17/16 13:00:00 CDTNotes: (Same As: Maxipime) MEDICATION WASTE Product Size: 1000 mg Product Wasted: ___ mg No Longer Active 07/19/2016 [facility] Mucinex 600 mg, 1 tab, Route: PO, Drug form: ERTAB, Q12H, Dosing Weight 106.182, kg, Start date: 07/18/16 21:00:00 BEAD INSPECTOR, Duration: 30 day, Stop date: 08/17/16 9:00:00 CDTNotes: (Same as: Guaifenesin LA, Humibid LA, Mucinex) "Do Not Crush" Take medication with plenty of water. No Longer Active 07/19/2016 [facility] Morphine 2 mg, 1 mL, Route: IVP, Drug form: INJ, Q4H, Dosing Weight 106.182, kg, PRN Pain Score 7-10, Start date: 07/18/16 20:44:00 BEAD INSPECTOR, Duration: 30 day, Stop date: 08/17/16 20:43:00 CDTNotes: (Same as:MORPhine Sulfate) No Longer Active 07/19/2016 [facility] Ondansetron 4 mg, 2 mL, Route: IVP, Drug form: INJ, Q6H, Dosing Weight 106.182, kg, PRN Nausea & Vomiting, Start date: 07/18/16 20:43:00 BEAD INSPECTOR, Duration: 30 day, Stop date: 08/17/16 20:42:00 CDTNotes: (Same as: Zofran) MEDICATION WASTE Product Size: 4 mg Product Wasted: ___ mg No Longer Active 07/19/2016 [facility] sodium chloride 0.9% 1000 ml INJ 1,000 mL 1,000 mL, Rate: 125 ml/hr, Infuse over: 8 hr, Route: IV, Dosing Weight 106.182 kg, Total Volume: 1,000, Start date: 07/18/16 20:42:00 BEAD INSPECTOR, Duration: 30 day, Stop date: 08/17/16 20:41:00 CDT No Longer Active 07/19/2016 [facility] Unknown Home Medication See Instructions, Refill(s) 0 No Longer Active 07/19/2016 [facility] simvastatin 20 mg oral tablet 20 mg=1 tab, PO, Bedtime, 0 Refill(s) Active 07/19/2016 [facility] 24 HR Metformin hydrochloride 500 MG Extended Release Tablet 1,000 mg=2 tab, PO, BID, 0 Refill(s) Active 07/19/2016 [facility] NPH Insulin, Human 100 UNT/ML Injectable Suspension [Novolin N] 50 unit, SUB-Q, BID, 0 Refill(s) Active 07/19/2016 [facility] Tylenol 975 mg, 3 tab, Route: PO, Drug form: TAB, ONCE, Dosing Weight 106.818, kg, Priority: STAT, Start date: 07/18/16 18:17:00 BEAD INSPECTOR, Stop date: 07/18/16 18:17:00 CSTNotes: Do not exceed 4 gm/day. (Same as: Tylenol) Inactive 07/19/2016 [facility] Rocephin 1 gm, Route: IVPB, ONCE, Dosing Weight 106.818, kg, Priority: STAT, Start date: 07/18/16 17:05:00 BEAD INSPECTOR, Stop date: 07/18/16 17:05:00 CSTNotes: (Same As: Rocephin). Use with 100 mL NS and infuse over 30 min MEDICATION WASTE Product Size: 1000 mg Product Wasted: ___ mg Inactive 07/18/2016 [facility] Sodium Chloride 0.154 MEQ/ML Injectable Solution 1,000 mL, 1,000 ml/hr, Infuse Over: 1 hr, Route: IV, 1,000, Drug form: INJ, ONCE, Priority: STAT, Dosing Weight 106.818 kg, Start date: 07/18/16 17:04:00 BEAD INSPECTOR, Duration: 1 doses or times, Stop date: 07/18/16 17:04:00 BEAD INSPECTOR Inactive 07/18/2016 [facility] Motrin 800 mg, Route: PO, Drug form: TAB, ONCE, Dosing Weight 106.818, kg, Priority: STAT, Start date: 07/18/16 16:51:00 BEAD INSPECTOR, Stop date: 07/18/16 16:51:00 BEAD INSPECTOR Inactive 07/18/2016 [facility] Albuterol 0.833 MG/ML / Ipratropium David 0.167 MG/ML Inhalant Solution [DuoNeb] 3 ml, Route: NEB, Drug Form: SOLN, Dosing Weight 106.818, kg, PRN, PRN Respiratory Protocol, Start date: 07/18/16 16:23:00 BEAD INSPECTOR, Duration: 30 day, Stop date: 08/17/16 17:22:00 CDTNotes: (Same as: Duoneb) No Longer Active 07/18/2016 [facility] Sodium Chloride 0.154 MEQ/ML Injectable Solution 1,000 mL, 1,000 ml/hr, Infuse Over: 1 hr, Route: IV, 1,000, Drug form: INJ, ONCE, Priority: STAT, Dosing Weight 106.818 kg, Start date: 07/18/16 16:16:00 BEAD INSPECTOR, Duration: 1 doses or times, Stop date: 07/18/16 16:16:00 BEAD INSPECTOR Inactive 07/18/2016 [facility] Zofran 4 mg, 2 mL, Route: IVP, Drug form: INJ, ONCE, Dosing Weight 106.818, kg, Start date: 07/18/16 16:16:00 BEAD INSPECTOR, Stop date: 07/18/16 16:16:00 CSTNotes: (Same as: Zofran) MEDICATION WASTE Product Size: 4 mg Product Wasted: ___ mg Inactive 07/18/2016 [facility] Allergies, Adverse Reactions, Alerts Substance Category Reaction Severity Reaction type Status Date Reported Comments Source Immunizations Immunization Date Given Site Status Last Updated Comments Source Results Order Name Results Value Reference Range Date Interpretation Comments Source CHEM PANEL Lactic Acid Lvl 0.7 mMol/L 0.5 - 2.2 07/21/2016 [facility] CHEM PANEL Calcium Lvl 7.8 mg/dL [...] BUN 8 mg/dL 7 - 22 07/21/2016 [facility] CHEM PANEL Bili Total 0.6 mg/dL 0.2 - 1.3 07/21/2016 [facility] CHEM PANEL Albumin Lvl 2.2 g/dL 3.5 - 5.0 07/21/2016 [facility] CHEM PANEL ALT 13 unit/L 0 - 65 07/21/2016 [facility] CHEM PANEL Total Protein 5.7 g/dL 6.4 - 8.4 07/21/2016 [facility] CHEM PANEL AST 16 unit/L 0 - 37 07/21/2016 [facility] CHEM PANEL Alk Phos 86 unit/L 39 - 136 07/21/2016 [facility] CHEM PANEL eGFR 106 mL/min/1.73m2 07/21/2016 [...] B/C Ratio 15 6 - 25 07/21/2016 [facility] CHEM PANEL Globulin 3.5 g/dL 2.7 - 4.2 07/21/2016 [facility] CHEM PANEL A/G Ratio 0.6 0.7 - 1.6 07/21/2016 [facility] HEMATOLOGY Lymphocytes 22.9 % 20.0 - 40.0 07/21/2016 [facility] HEMATOLOGY Segs 64.1 % 45.0 - 75.0 07/21/2016 [facility] HEMATOLOGY Eosinophils 0.5 % 0.0 - 4.0 07/21/2016 [facility] HEMATOLOGY Basophils 0.2 % 0.0 - 1.0 07/21/2016 [facility] HEMATOLOGY Segs-Bands # 4.1 K/CMM 1.5 - 8.1 07/21/2016 [facility] HEMATOLOGY Monocytes 12.3 % 2.0 - 12.0 07/21/2016 [facility] Lymphocytes # 1.5 K/CMM 1.0 - 5.5 07/21/2016 [facility] Monocytes # 0.8 K/CMM 0.0 - 0.8 07/21/2016 [facility] Platelet 208 K/CMM 133 - 450 07/21/2016 [facility] HEMATOLOGY RDW 14.5 % 11.5 - 14.5 07/21/2016 [facility] MCH 28.3 pg 27.0 - 31.0 07/21/2016 [facility] MPV 8.6 fL 7.4 - 10.4 07/21/2016 [facility] MCV 82.1 fL 80.0 - 98.0 07/21/2016 [facility] Hct 29.5 % 36.0 - 48.0 07/21/2016 [facility] Hgb 10.1 g/dL 12.0 - 16.0 07/21/2016 [facility] RBC 3.59 M/CMM 4.20 - 5.40 07/21/2016 [facility] WBC 6.4 K/CMM 3.7 - 10.4 07/21/2016 [facility] MCHC 34.4 g/dL 32.0 - 36.0 07/21/2016 [facility] ANEMIA STUDY % [place] 8 % 12 - 57 07/20/2016 [facility] ANEMIA STUDY UIBC 193 ug/dl 110 - 370 07/20/2016 [facility] ANEMIA STUDY Iron 17 ug/dl 30 - 160 07/20/2016 [facility] ANEMIA STUDY TIBC 210 ug/dl 228 - 428 07/20/2016 [facility] ANEMIA STUDY Ferritin Lvl 200 ng/mL 5 - 204 07/20/2016 [facility] CHEM PANEL Magnesium Lvl 1.7 mg/dL 1.8 - 2.4 07/20/2016 [facility] CHEM PANEL Lipase Lvl 65 unit/L 73 - 393 07/20/2016 [facility] CHEM PANEL eGFR 103 mL/min/1.73m2 07/20/2016 [...] should be multiplied by the estimated BMI. [facility] CHEM PANEL Glucose Lvl 128 mg/dL 70 - 99 07/20/2016 [facility] CHEM PANEL Albumin Lvl 2.3 g/dL 3.5 - 5.0 07/20/2016 [facility] CHEM PANEL AST 17 unit/L 0 - 37 07/20/2016 [facility] CHEM PANEL ALT 15 unit/L 0 - 65 07/20/2016 [facility] CHEM PANEL Bili Total 1.1 mg/dL 0.2 - 1.3 07/20/2016 [facility] CHEM PANEL Alk Phos 85 unit/L 39 - 136 07/20/2016 [facility] CHEM PANEL Creatinine Lvl 0.59 mg/dL 0.50 - 1.40 07/20/2016 [facility] CHEM PANEL BUN 8 mg/dL 7 - 22 07/20/2016 [facility] CHEM PANEL Sodium Lvl 136 meq/L 135 - 145 07/20/2016 [facility] CHEM PANEL Potassium Lvl 3.2 meq/L 3.5 - 5.1 07/20/2016 [facility] CHEM PANEL CO2 23 meq/L 24 - 32 07/20/2016 [facility] CHEM PANEL Chloride Lvl 103 meq/L 95 - 109 07/20/2016 [facility] CHEM PANEL Calcium Lvl 7.8 mg/dL 8.5 - 10.5 07/20/2016 [facility] CHEM PANEL Total Protein 6.6 g/dL 6.4 - 8.4 07/20/2016 [facility] CHEM PANEL A/G Ratio 0.5 0.7 - 1.6 07/20/2016 [facility] CHEM PANEL Globulin 4.3 g/dL 2.7 - 4.2 07/20/2016 [facility] CHEM PANEL B/C Ratio 14 6 - 25 07/20/2016 [facility] CHEM PANEL AGAP 13.2 meq/L 10.0 - 20.0 07/20/2016 [facility] Plt Morph Normal (07/20/16 4:46 AM) 07/20/2016 [facility] RBC Morph Normal (07/20/16 4:46 AM) 07/20/2016 [facility] Tot Cell Ct 100 07/20/2016 [facility] Segs 76.0 % 45.0 - 75.0 07/20/2016 [facility] Segs-Bands # 5.8 K/CMM 1.5 - 8.1 07/20/2016 [facility] Monocytes # 0.6 K/CMM 0.0 - 0.8 07/20/2016 [facility] Lymphocytes # 0.8 K/CMM 1.0 - 5.5 07/20/2016 [facility] Atypical Lymphs 0.0 % <=0.0 % 07/20/2016 [facility] Monocytes 8.0 % 2.0 - 12.0 07/20/2016 [facility] Lymphocytes 11.0 % 20.0 - 40.0 07/20/2016 [facility] Bands 5.0 % 0.0 - 11.0 07/20/2016 [facility] MCV 82.8 fL 80.0 - 98.0 07/20/2016 [facility] MCH 28.5 pg 27.0 - 31.0 07/20/2016 [facility] RDW 14.4 % 11.5 - 14.5 07/20/2016 [facility] Platelet 210 K/CMM 133 - 450 07/20/2016 [facility] MCHC 34.4 g/dL 32.0 - 36.0 07/20/2016 [facility] WBC 7.2 K/CMM 3.7 - 10.4 07/20/2016 [facility] RBC 3.80 M/CMM 4.20 - 5.40 07/20/2016 [facility] HEMATOLOGY Hct 31.5 % 36.0 - 48.0 07/20/2016 [facility] HEMATOLOGY Hgb 10.8 g/dL 12.0 - 16.0 07/20/2016 [facility] HEMATOLOGY MPV 8.7 fL 7.4 - 10.4 07/20/2016 [facility] LIPIDS Chol 111 mg/dL <=199 mg/dL 07/20/2016 [facility] LIPIDS Trig 259 mg/dL <=149 mg/dL 07/20/2016 [facility] LIPIDS VLDL 52 07/20/2016 [facility] LIPIDS CHD Risk 9.25 3.90 - 5.80 07/20/2016 [facility] LIPIDS HDL 12 mg/dL >=61 mg/dL 07/20/2016 [facility] LIPIDS LDL (Calculated) 47 mg/dL <=99 mg/dL 07/20/2016 [facility] SPECIAL CHEMISTRY Hgb A1C 7.3 % <=5.6 % 07/20/2016 [facility] Renal pyelogram retrograde DX Renal pyelogram [...] proximal pigtail in the upper pole infundibulum. [id number] 07/19/2016 - - Read by: Abdulkadir Schwartz MD Dictated Date/time: 07/19/16 14:26 Electronically Signed by: Abdulkadir Schwartz MD 07/19/16 14:30 FINAL REPORT [facility] CHEM PANEL eGFR 84 mL/min/1.73m2 07/19/2016 [...] should be multiplied by the estimated BMI. [facility] CHEM PANEL AGAP 13.2 meq/L 10.0 - 20.0 07/19/2016 [facility] CHEM PANEL Calcium Lvl 7.8 mg/dL 8.5 - 10.5 07/19/2016 [facility] CHEM PANEL Chloride Lvl 103 meq/L 95 - 109 07/19/2016 [facility] CHEM PANEL CO2 21 meq/L 24 - 32 07/19/2016 [facility] CHEM PANEL Potassium Lvl 3.2 meq/L 3.5 - 5.1 07/19/2016 [facility] CHEM PANEL Creatinine Lvl 0.79 mg/dL 0.50 - 1.40 07/19/2016 [facility] CHEM PANEL Sodium Lvl 134 meq/L 135 - 145 07/19/2016 [facility] CHEM PANEL Glucose Lvl 231 mg/dL 70 - 99 07/19/2016 [facility] CHEM PANEL BUN 14 mg/dL 7 - 22 07/19/2016 [facility] HEMATOLOGY WBC 7.6 K/CMM 3.7 - 10.4 07/19/2016 [facility] HEMATOLOGY RBC 3.86 M/CMM 4.20 - 5.40 07/19/2016 [facility] Hct 32.1 % 36.0 - 48.0 07/19/2016 [facility] HEMATOLOGY Hgb 10.9 g/dL 12.0 - 16.0 07/19/2016 [facility] Platelet 194 K/CMM 133 - 450 07/19/2016 [facility] MPV 8.6 fL 7.4 - 10.4 07/19/2016 [facility] MCV 83.3 fL 80.0 - 98.0 07/19/2016 [facility] MCH 28.2 pg 27.0 - 31.0 07/19/2016 [facility] MCHC 33.9 g/dL 32.0 - 36.0 07/19/2016 [facility] HEMATOLOGY RDW 14.3 % 11.5 - 14.5 07/19/2016 [facility] CHEM PANEL Lactic Acid Lvl 1.6 mMol/L 0.5 - 2.2 07/19/2016 [facility] CHEM PANEL Lactic Acid Lvl 2.3 mMol/L 0.5 - 2.2 07/18/2016 [facility] URINE AND STOOL UA Color Tiana [...] STOOL UA Spec Grav 1.024 <=1.030 07/18/2016 [facility] URINE AND STOOL UA Turbidity Marked *ABN* (07/18/16 5:03 PM) Clear 07/18/2016 [facility] HEMATOLOGY Lymphocytes 6.7 % 20.0 - 40.0 07/18/2016 [facility] HEMATOLOGY Segs 86.6 % 45.0 - 75.0 07/18/2016 [facility] HEMATOLOGY Segs-Bands # 13.2 K/CMM 1.5 - 8.1 07/18/2016 [facility] HEMATOLOGY Monocytes 6.6 % 2.0 - 12.0 07/18/2016 [facility] HEMATOLOGY Basophils 0.1 % 0.0 - 1.0 07/18/2016 [facility] HEMATOLOGY Lymphocytes # 1.0 K/CMM 1.0 - 5.5 07/18/2016 [facility] HEMATOLOGY Monocytes # 1.0 K/CMM 0.0 - 0.8 07/18/2016 [facility] RAPID Grp A Strep Scr Negative (07/18/16 4:47 PM) Negative 07/18/2016 [facility] VIRAL - SEROLOGY Influ B Negative (07/18/16 4:47 PM) Negative 07/18/2016 [facility] VIRAL - SEROLOGY Influ A Negative (07/18/16 4:47 PM) Negative 07/18/2016 [facility] Renal Stone CT Renal Stone CT [...] Unique Grossman MD 07/18/16 19:27 FINAL REPORT [facility] Chest 2 views DX Chest 2 [...] Víctor Marcelo MD 07/18/16 18:00 FINAL REPORT [facility] Vital Signs Vital Sign Value Date Comments Source Systolic (mm Hg) 128 07/21/2016 [facility] Diastolic (mm Hg) 72 07/21/2016 [facility] Respitory Rate 18 07/21/2016 [facility] Heart Rate 76 07/21/2016 [facility] Temperature Oral (F) 98.8 F 07/21/2016 [facility] Heart Rate 83 07/21/2016 [facility] Respitory Rate 19 07/21/2016 [facility] Temperature Oral (F) 99.3 F 07/21/2016 [facility] Systolic (mm Hg) 150 07/21/2016 [facility] Diastolic (mm Hg) 76 07/21/2016 [facility] Respitory Rate 18 07/21/2016 [facility] Heart Rate 89 07/21/2016 [facility] Systolic (mm Hg) 147 07/21/2016 [facility] Diastolic (mm Hg) 78 07/21/2016 [facility] Temperature Oral (F) 98 F 07/21/2016 [facility] BMI Calculated 38.95 07/19/2016 [facility] Height 165.1 cm 07/19/2016 [facility] Weight 106.182 07/19/2016 [facility] Height 165.1 cm 07/18/2016 [facility] Weight 106.818 07/18/2016 [facility] BMI Calculated 39.19 07/18/2016 [facility] Encounters Location Location Details Encounter Type Encounter Number Reason For Visit Attending Provider ADM Date DC Date Status Source [facility] Inpatient [id number] Rajan Dawn 07/18/2016 07/21/2016 [facility] Procedures Procedure Code Date Perfomer Comments Source Caesarean section [id number] [facility] Cholecystectomy [id number] [facility] Exploration of carpal tunnel [id number] [facility] TORIBIO BSO - Total abdominal hysterectomy and bilateral salpingo-oophorectomy [id number] [facility]
--- NOTE | 2018-07-06 19:07 | Diagnostic Imaging Report ---
Radiographs of the left hip and pelvis - 3 views HISTORY: Pain COMPARISON: None available. FINDINGS: Bones: No acute displaced fracture. Chronic appearing deformity of the pubic symphysis. Osseous alignment is within normal limits. Joints: Scattered degenerative changes. No osseous erosion. Soft tissues: The soft tissues appear unremarkable. IMPRESSION: Scattered degenerative changes. No osseous erosion Signed by: Dr. Teddy Del Rio M.D. on 07/06/2018 7:04 PM
--- NOTE | 2018-07-06 19:08 | Diagnostic Imaging Report ---
Radiographs of the lumbar spine - 5 views with bilateral obliques HISTORY: Pain COMPARISON: None available. FINDINGS: Bones: No acute displaced fracture. Osseous alignment is within normal limits. Joints: Scattered degenerative change. No osseous erosion. No pars interarticularis defects. Soft tissues: The soft tissues appear unremarkable. IMPRESSION: Scattered degenerative change. No osseous erosion. No pars interarticularis defects. Signed by: Dr. Teddy Del Rio M.D. on 07/06/2018 7:05 PM
[2018-07-06 21:09] VITALS: BP 123/79
== END 2018-07-06 21:12 | disposition home or self-care (01) ==
LOC: ER 16:28
DX: M79.605 Pain in left leg (principal); S76.112A Strain of left quadriceps muscle, fascia and tendon, initial encounter; I10 Essential (primary) hypertension; E11.9 Type 2 diabetes mellitus without complications; E78.5 Hyperlipidemia, unspecified
CPT/HCPCS: 72110; 99283

== ENCOUNTER → 2018-12-28 | Outpatient (CLI) | payer MEDICARE ==
--- NOTE | 2018-12-28 15:59 | Diagnostic Imaging Report ---
TECHNIQUE: Magnetic resonance imaging of the LEFT KNEE was performed WITHOUT injected contrast. HISTORY: Left knee pain, evaluate for meniscus tear COMPARISON: None available. FINDINGS: LIGAMENTS AND TENDONS: ACL: Intact PCL: Intact Collateral ligaments: Intact Iliotibial band: Unremarkable Popliteal tendon: Intact Extensor mechanism: Intact JOINT: Menisci: Medial: Degenerative signal with complex radial tear to the posterior horn root junction with mild extrusion. Lateral: Intact without tear. Articular Cartilage: Medial Compartment: Partial-thickness cartilage loss Lateral Compartment: Partial-thickness cartilage loss Patellofemoral Compartment: Partial-thickness cartilage loss Joint Fluid: Small joint effusion. Small Hernandez's cyst. BONE: No focal or infiltrative bone marrow replacing abnormality. No acute fracture. SOFT TISSUES: Otherwise, unremarkable. IMPRESSION: Medial meniscus degeneration with complex radial tear to the posterior horn root junction results in extrusion and partial thickness cartilage loss Signed by: Dr. Ozzy Martin M.D. on 12/28/2018 3:55 PM
== END ==
LOC: MRI 14:28
PROVIDERS: ATTEND Specialist
DX: S83.222A Peripheral tear of medial meniscus, current injury, left knee, initial encounter (principal)

== ENCOUNTER → 2019-01-12 | Day surgery (SDC) | payer MEDICARE ==
[2019-01-11 09:42] LABS: BASOPHILS % 0.5 % (0.0-1.0); EOSINOPHILS # (AUTO) 0.1 (0.0-0.4); EOSINOPHILS % 1.9 % (0.0-6.0); HEMATOCRIT 36.8 % (34.2-44.1); HEMOGLOBIN 12.1 g/dL (12.0-16.0); LYMPHOCYTES # (AUTO) 2.3 (1.0-3.2); LYMPHOCYTES % 35.4 % (18.0-39.1); MEAN CORPUSCULAR HEMOGLOBIN 28.8 pg (28-32); MEAN CORPUSCULAR HGB CONC 32.9 g/dL (31-35); MEAN CORPUSCULAR VOLUME 87.6 fL (81-99); MONOCYTES # (AUTO) 0.4 (0.2-0.8); MONOCYTES % 6.1 % (4.4-11.3); NEUTROPHILS # (AUTO) 3.5 (2.1-6.9); NEUTROPHILS % 55.6 % (38.7-80.0); PLATELET COUNT 215 x10e3/uL (140-360); RED CELL DISTRIBUTION WIDTH 13.7 % (11.7-14.4)
[2019-01-11 09:55] LABS: BLOOD UREA NITROGEN 9 mg/dL (7-26); BUN/CREATININE RATIO 14 (6-25); CALCIUM 9.2 mg/dL (8.4-10.2); CARBON DIOXIDE 28 mmol/L (22-29); CHLORIDE 103 mmol/L (98-107); CREATININE, SERUM 0.64 mg/dL (0.57-1.11); EST GLOMERULAR FILTRATION RATE > 60 ML/MIN (60-); GLUCOSE 121 mg/dL (74-118); SODIUM 140 mmol/L (136-145)
[~2019-01-12] MED LIST changes: +BUPIVACAINE 0.5%/EPI 30 ML SDV INJ ONE; +CEFAZOLIN SOD 1 GM/NS 50ML 100 ML IV ONE; +DEXAMETHASONE SOD PHOS INJ 4 MG/ML VIAL ONE; +FENTANYL CITRATE/PF 100MCG/2 ML INJ ONE; +HYDROCODONE/APAP 5MG-325MG TAB ONE; +KETOROLAC TROMETHAMINE 30 MG/ML VIAL ONE; +LIDOCAINE HCL 2% LOCAL INJ 5 ML SDV VIAL INJ ONE; +MIDAZOLAM HCL 2 MG/2 ML VIAL ONE; +ONDANSETRON HCL INJ 2MG/ML 2ML 2 MG/ML VIAL ONE; +PROPOFOL IV EMULSION 10 MG/ML 20 ML VIAL ONE; +SEVOFLURANE INHAL SOLN 250 ML PEN BTL ONE
--- OUTSIDE RECORDS SUMMARY | 2019-01-12 05:14 | XMS REPORT | Continuity of Care Document ---
Author Author [employer] Organization [employer] Address Unknown Phone Unavailable Care Team Providers Care Plastic Cutter Name Role Phone [employer] Unavailable Unavailable Problems Problem Status Onset Date Classification Date Reported Comments Source COUGH X2 WEEKS Active 07/18/2016 [facility] ACUTE PYELONEPHRITIS, KIDNEY STONE, LEUK Active 07/18/2016 [facility] DM (Confirmed) Active Problem 07/24/2016 [facility] Diabetes Resolved Problem 07/24/2016 [facility] Hyperlipidemia Active Problem 07/24/2016 [facility] HTN (Confirmed) Active Problem 07/24/2016 [facility] HTN (Confirmed) Resolved Problem 07/24/2016 [facility] ACUTE PYELONEPHRITIS Active [facility] CALCULUS OF KIDNEY Active [facility] Medications Medication Details Route Status Patient Instructions Ordering Provider Order Date Source Acetaminophen 300 MG / Codeine Phosphate 30 MG Oral Tablet [Tylenol with Codeine #3] 1 tab, PO, Q6H, PRN Pain Score 6-10, # 20 tab, 0 Refill(s) Active 07/21/2016 [facility] lactobacillus acidophilus-lactobacillus casei oral delayed release capsule 1 tab, PO, BID, # 28 tab, 0 Refill(s) Active 07/21/2016 [facility] Ciprofloxacin 500 MG Oral Tablet [Cipro] 500 mg=1 tab, PO, Q12H, X 14 day, # 28 tab, 0 Refill(s) Active 07/21/2016 [facility] metoprolol tartrate 25 mg oral tablet 25 mg=1 tab, PO, Q12H, # 60 tab, 0 Refill(s) Active 07/21/2016 [facility] lisinopril 5 mg oral tablet 10 mg=2 tab, PO, Daily, # 60 tab, 0 Refill(s) Active 07/21/2016 [facility] guaiFENesin 600 mg oral tablet, extended release 600 mg=1 tab, PO, Q12H, PRN Cough, X 7 day, # 14 tab, 0 Refill(s) Active 07/21/2016 [facility] potassium chloride 40 mEq, 2 tab, Route: PO, Drug form: ERTAB, ONCE, Dosing Weight 106.182, kg, Start date: 07/21/16 8:02:00 VIDEO PRODUCTION SPECIALIST, Stop date: 07/21/16 8:02:00 CSTNotes: (Same as: K-Dur 20) "Do Not Crush" With food and full glass of water Inactive 07/21/2016 [facility] Protonix 40 mg, 1 tab, Route: PO, Drug form: ECTAB, Before Breakfast, Dosing Weight 106.182, kg, Start date: 07/21/16 7:30:00 VIDEO PRODUCTION SPECIALIST, Duration: 30 day, Stop date: 08/19/16 7:30:00 CDTNotes: Tablet should not be chewed or crushed. (Same as: Protonix) Inactive 07/21/2016 [facility] potassium chloride 40 mEq, 2 tab, Route: PO, Drug form: ERTAB, ONCE, Dosing Weight 106.182, kg, Start date: 07/20/16 12:16:00 VIDEO PRODUCTION SPECIALIST, Stop date: 07/20/16 12:16:00 CSTNotes: (Same as: K-Dur 20) "Do Not Crush" With food and full glass of water Inactive 07/20/2016 [facility] Magnesium Sulfate 2 gm, 50 mL, Route: IVPB, Drug form: INJ, ONCE, Dosing Weight 106.182, kg, Start date: 07/20/16 12:15:00 VIDEO PRODUCTION SPECIALIST, Duration: 2 hr, Stop date: 07/20/16 12:15:00 CSTNotes: WASTE: F/P - Sink; E - Municipal Trash Bin Inactive 07/20/2016 [facility] metoprolol tartrate 25 mg, 1 tab, Route: PO, Drug form: TAB, Q12H, Dosing Weight 106.182, kg, Start date: 07/19/16 21:00:00 VIDEO PRODUCTION SPECIALIST, Duration: 30 day, Stop date: 08/18/16 9:00:00 CDTNotes: (Same as: Lopressor) No Longer Active 07/20/2016 [facility] Novolin N 50 unit, 0.5 mL, Route: SUB-Q, Drug form: INJ, BID, Dosing Weight 106.182, kg, Start date: 07/19/16 17:00:00 VIDEO PRODUCTION SPECIALIST, Duration: 30 day, Stop date: 08/18/16 9:00:00 CDTNotes: Roll in palms of hands gently; Do not shake vigorously. (Same as: NovoLIN N, Humulin N) Do not hold insulin without contacting prescriber "single patient use only" WASTE: F/P - Black; E - Municipal Trash Bin Stable for 14 days at room temperature Expires in days from Date No Longer Active 07/19/2016 [facility] Protonix 40 mg, Route: IVP, Drug form: INJ, Before Dinner, Dosing Weight 106.182, kg, Start date: 07/19/16 16:30:00 VIDEO PRODUCTION SPECIALIST, Duration: 30 day, Stop date: 08/17/16 16:30:00 CDTNotes: For IV push reconstitute with 10 ml 0.9% sodium chloride and push over 2 minutes. (Same as: Protonix) No Longer Active 07/19/2016 [facility] potassium chloride 40 mEq, 2 tab, Route: PO, Drug form: ERTAB, ONCE, Dosing Weight 106.182, kg, Start date: 07/19/16 14:45:00 VIDEO PRODUCTION SPECIALIST, Stop date: 07/19/16 14:45:00 CSTNotes: (Same as: K-Dur 20) "Do Not Crush" With food and full glass of water Inactive 07/19/2016 [facility] fentaNYL (ANES) Route: IV, Drug form: INJ, ONCE, Stop date: 07/19/16 13:27:00 VIDEO PRODUCTION SPECIALIST Inactive 07/19/2016 [facility] ondansetron (ANES) Route: IV, Drug form: INJ, ONCE, Stop date: 07/19/16 13:27:00 VIDEO PRODUCTION SPECIALIST Inactive 07/19/2016 [facility] hydromorphone (ANES) Route: IV, Drug form: INJ, ONCE, Stop date: 07/19/16 13:27:00 VIDEO PRODUCTION SPECIALIST Inactive 07/19/2016 [facility] propofol (ANES) Route: IV, Drug form: INJ, ONCE, Stop date: 07/19/16 13:27:00 VIDEO PRODUCTION SPECIALIST Inactive 07/19/2016 [facility] lidocaine (ANES) Route: IV, Drug form: INJ, ONCE, Stop date: 07/19/16 13:27:00 VIDEO PRODUCTION SPECIALIST Inactive 07/19/2016 [facility] midazolam (ANES) Route: IV, Drug form: SOLN, ONCE, Stop date: 07/19/16 13:27:00 VIDEO PRODUCTION SPECIALIST Inactive 07/19/2016 [facility] cefepime (ANES) Route: IV, Drug form: INJ, ONCE, Stop date: 07/19/16 13:27:00 VIDEO PRODUCTION SPECIALIST Inactive 07/19/2016 [facility] LR 1000 mL INJ (ANES) Route: IV, Total Volume: 1,000, Start date: 07/19/16 12:43:00 VIDEO PRODUCTION SPECIALIST, Stop date: 07/19/16 13:43:00 VIDEO PRODUCTION SPECIALIST Inactive 07/19/2016 [facility] Insulin regular 2 unit, Route: IV, ONCE, Dosing Weight 106.182, kg, Start date: 07/19/16 12:32:00 VIDEO PRODUCTION SPECIALIST, Stop date: 07/19/16 12:32:00 VIDEO PRODUCTION SPECIALIST Inactive 07/19/2016 [facility] Insulin regular 2 unit, 0.02 mL, Route: IV, Drug form: INJ, ONCE, Dosing Weight 106.182, kg, Start date: 07/19/16 11:25:00 VIDEO PRODUCTION SPECIALIST, Stop date: 07/19/16 11:25:00 CSTNotes: (Same as: Humulin R and NovoLIN R) WASTE: F/P - Black; E - [place] Trash Bin (Do not shake) Inactive 07/19/2016 [facility] Lisinopril 10 mg, 2 tab, Route: PO, Drug form: TAB, Daily, Dosing Weight 106.182, kg, Start date: 07/19/16 9:00:00 VIDEO PRODUCTION SPECIALIST, Duration: 30 day, Stop date: 08/17/16 9:00:00 CDTNotes: (Same as: Prinivil, Zestril) No Longer Active 07/19/2016 [facility] Tylenol 650 mg, 2 tab, Route: PO, Drug form: TAB, Q6H, Dosing Weight 106.182, kg, PRN For Temp > 100.4 F, Start date: 07/19/16 0:30:00 VIDEO PRODUCTION SPECIALIST, Duration: 30 day, Stop date: 08/18/16 0:29:00 CDTNotes: Do not exceed 4 gm/day. (Same as: Tylenol) No Longer Active 07/19/2016 [facility] heparin 5,000 unit, 1 mL, Route: SUB-Q, Drug form: INJ, Q8H, Dosing Weight 106.182, kg, Start date: 07/19/16 0:00:00 VIDEO PRODUCTION SPECIALIST, Duration: 30 day, Stop date: 08/17/16 16:00:00 CDTNotes: porcine heparin No Longer Active 07/19/2016 [facility] Gentamicin Sulfate (LONG-TERM) 120 mg, 100 mL, Route: IV, Drug form: INJ, [id number], Dosing Weight 106.182, kg, Start date: 07/18/16 22:00:00 VIDEO PRODUCTION SPECIALIST, Duration: 30 day, Stop date: 08/17/16 10:00:00 CDTNotes: TIME CRITICAL MEDICATION (Same as Garamycin) No Longer Active 07/19/2016 [facility] Dextrose 50% Syringe 25 gm, 50 mL, Route: IVP, Drug Form: INJ, Dosing Weight 106.182, kg, PRN, PRN Blood Glucose Results, Start date: 07/18/16 21:34:00 VIDEO PRODUCTION SPECIALIST, Duration: 30 day, Stop date: 08/17/16 22:33:00 CDT No Longer Active 07/19/2016 [facility] Glucagon 1 mg, Route: IM, Drug form: PDR/INJ, PRN, Dosing Weight 106.182, kg, PRN Blood Glucose Results, Start date: 07/18/16 21:34:00 VIDEO PRODUCTION SPECIALIST, Duration: 30 day, Stop date: 08/17/16 22:33:00 CDT No Longer Active 07/19/2016 [facility] Insulin, Aspart, Human 8 unit, 0.08 mL, Route: SUB-Q, Drug form: SOLN, TID-Before Meals, Dosing Weight 106.182, kg, PRN Blood Glucose Results, Start date: 07/18/16 21:34:00 VIDEO PRODUCTION SPECIALIST, Duration: 30 day, Stop date: 08/17/16 21:33:00 CDTNotes: Roll in palms of hands gently; Do not shake vigorously. (Same as: NovoLOG) "single patient use only" WASTE: F/P - Black; E - Municipal Trash Bin Stable for 28 days at room temperature. Expires in days from Date No Longer Active 07/19/2016 [facility] Simvastatin 20 mg, 1 tab, Route: PO, Drug form: TAB, Bedtime, Dosing Weight 106.182, kg, Start date: 07/18/16 21:00:00 VIDEO PRODUCTION SPECIALIST, Duration: 30 day, Stop date: 08/16/16 21:00:00 CDTNotes: (Same as: Zocor) No Longer Active 07/19/2016 [facility] cefepime 1 gm, Route: IV, ABXQ8H, Dosing Weight 106.182, kg, (For CrCl > /=50 ml/min), Start date: 07/18/16 21:00:00 VIDEO PRODUCTION SPECIALIST, Duration: 30 day, Stop date: 08/17/16 13:00:00 CDTNotes: (Same As: Maxipime) MEDICATION WASTE Product Size: 1000 mg Product Wasted: ___ mg No Longer Active 07/19/2016 [facility] Mucinex 600 mg, 1 tab, Route: PO, Drug form: ERTAB, Q12H, Dosing Weight 106.182, kg, Start date: 07/18/16 21:00:00 VIDEO PRODUCTION SPECIALIST, Duration: 30 day, Stop date: 08/17/16 9:00:00 CDTNotes: (Same as: Guaifenesin LA, Humibid LA, Mucinex) "Do Not Crush" Take medication with plenty of water. No Longer Active 07/19/2016 [facility] Morphine 2 mg, 1 mL, Route: IVP, Drug form: INJ, Q4H, Dosing Weight 106.182, kg, PRN Pain Score 7-10, Start date: 07/18/16 20:44:00 VIDEO PRODUCTION SPECIALIST, Duration: 30 day, Stop date: 08/17/16 20:43:00 CDTNotes: (Same as:MORPhine Sulfate) No Longer Active 07/19/2016 [facility] Ondansetron 4 mg, 2 mL, Route: IVP, Drug form: INJ, Q6H, Dosing Weight 106.182, kg, PRN Nausea & Vomiting, Start date: 07/18/16 20:43:00 VIDEO PRODUCTION SPECIALIST, Duration: 30 day, Stop date: 08/17/16 20:42:00 CDTNotes: (Same as: Zofran) MEDICATION WASTE Product Size: 4 mg Product Wasted: ___ mg No Longer Active 07/19/2016 [facility] sodium chloride 0.9% 1000 ml INJ 1,000 mL 1,000 mL, Rate: 125 ml/hr, Infuse over: 8 hr, Route: IV, Dosing Weight 106.182 kg, Total Volume: 1,000, Start date: 07/18/16 20:42:00 VIDEO PRODUCTION SPECIALIST, Duration: 30 day, Stop date: 08/17/16 20:41:00 CDT No Longer Active 07/19/2016 [facility] Unknown Home Medication See Instructions, Refill(s) 0 No Longer Active 07/19/2016 [facility] simvastatin 20 mg oral tablet 20 mg=1 tab, PO, Bedtime, 0 Refill(s) Active 07/19/2016 [facility] 24 HR Metformin hydrochloride 500 MG Extended Release Tablet 1,000 mg=2 tab, PO, BID, 0 Refill(s) Active 07/19/2016 [facility] NPH Insulin, Human 100 UNT/ML Injectable Suspension [Novolin N] 50 unit, SUB-Q, BID, 0 Refill(s) Active 07/19/2016 [facility] Tylenol 975 mg, 3 tab, Route: PO, Drug form: TAB, ONCE, Dosing Weight 106.818, kg, Priority: STAT, Start date: 07/18/16 18:17:00 VIDEO PRODUCTION SPECIALIST, Stop date: 07/18/16 18:17:00 CSTNotes: Do not exceed 4 gm/day. (Same as: Tylenol) Inactive 07/19/2016 [facility] Rocephin 1 gm, Route: IVPB, ONCE, Dosing Weight 106.818, kg, Priority: STAT, Start date: 07/18/16 17:05:00 VIDEO PRODUCTION SPECIALIST, Stop date: 07/18/16 17:05:00 CSTNotes: (Same As: Rocephin). Use with 100 mL NS and infuse over 30 min MEDICATION WASTE Product Size: 1000 mg Product Wasted: ___ mg Inactive 07/18/2016 [facility] Sodium Chloride 0.154 MEQ/ML Injectable Solution 1,000 mL, 1,000 ml/hr, Infuse Over: 1 hr, Route: IV, 1,000, Drug form: INJ, ONCE, Priority: STAT, Dosing Weight 106.818 kg, Start date: 07/18/16 17:04:00 VIDEO PRODUCTION SPECIALIST, Duration: 1 doses or times, Stop date: 07/18/16 17:04:00 VIDEO PRODUCTION SPECIALIST Inactive 07/18/2016 [facility] Motrin 800 mg, Route: PO, Drug form: TAB, ONCE, Dosing Weight 106.818, kg, Priority: STAT, Start date: 07/18/16 16:51:00 VIDEO PRODUCTION SPECIALIST, Stop date: 07/18/16 16:51:00 VIDEO PRODUCTION SPECIALIST Inactive 07/18/2016 [facility] Albuterol 0.833 MG/ML / Ipratropium [place] 0.167 MG/ML Inhalant Solution [DuoNeb] 3 ml, Route: NEB, Drug Form: SOLN, Dosing Weight 106.818, kg, PRN, PRN Respiratory Protocol, Start date: 07/18/16 16:23:00 VIDEO PRODUCTION SPECIALIST, Duration: 30 day, Stop date: 08/17/16 17:22:00 CDTNotes: (Same as: Duoneb) No Longer Active 07/18/2016 [facility] Sodium Chloride 0.154 MEQ/ML Injectable Solution 1,000 mL, 1,000 ml/hr, Infuse Over: 1 hr, Route: IV, 1,000, Drug form: INJ, ONCE, Priority: STAT, Dosing Weight 106.818 kg, Start date: 07/18/16 16:16:00 VIDEO PRODUCTION SPECIALIST, Duration: 1 doses or times, Stop date: 07/18/16 16:16:00 VIDEO PRODUCTION SPECIALIST Inactive 07/18/2016 [facility] Zofran 4 mg, 2 mL, Route: IVP, Drug form: INJ, ONCE, Dosing Weight 106.818, kg, Start date: 07/18/16 16:16:00 VIDEO PRODUCTION SPECIALIST, Stop date: 07/18/16 16:16:00 CSTNotes: (Same as: Zofran) MEDICATION WASTE Product Size: 4 mg Product Wasted: ___ mg Inactive 07/18/2016 [facility] Allergies, Adverse Reactions, Alerts No Known Medication Allergies Immunizations No Data Provided for This Section Results Order Name Results Value Reference Range Date Interpretation Comments Source CHEM PANEL Lactic Acid Lvl 0.7 0.5 - 2.2 07/21/2016 [facility] CHEM PANEL Calcium Lvl 7.8 8.5 - 10.5 07/21/2016 [facility] CHEM PANEL Chloride Lvl 106 95 - 109 07/21/2016 [facility] CHEM PANEL CO2 23 24 - 32 07/21/2016 [facility] CHEM PANEL Sodium Lvl 140 135 - 145 07/21/2016 [facility] CHEM PANEL Potassium Lvl 3.2 3.5 - 5.1 07/21/2016 [facility] CHEM PANEL Creatinine Lvl 0.54 0.50 - 1.40 07/21/2016 [facility] CHEM PANEL Glucose Lvl 116 70 - 99 07/21/2016 [facility] CHEM PANEL BUN 8 7 - 22 07/21/2016 [facility] CHEM PANEL Bili Total 0.6 0.2 - 1.3 07/21/2016 [facility] CHEM PANEL Albumin Lvl 2.2 3.5 - 5.0 07/21/2016 [facility] CHEM PANEL ALT 13 0 - 65 07/21/2016 [facility] CHEM PANEL Total Protein 5.7 6.4 - 8.4 07/21/2016 [facility] CHEM PANEL AST 16 0 - 37 07/21/2016 [facility] CHEM PANEL Alk Phos 86 39 - 136 07/21/2016 [facility] CHEM PANEL eGFR 106 07/21/2016 Result Comment: The eGFR is calculated [...] should be multiplied by the estimated BMI. [facility] CHEM PANEL AGAP 14.2 10.0 - 20.0 07/21/2016 [facility] CHEM PANEL B/C Ratio 15 6 - 25 07/21/2016 [facility] CHEM PANEL Globulin 3.5 2.7 - 4.2 07/21/2016 [facility] CHEM PANEL A/G Ratio 0.6 0.7 - 1.6 07/21/2016 [facility] HEMATOLOGY Lymphocytes 22.9 20.0 - 40.0 07/21/2016 [facility] HEMATOLOGY Segs 64.1 45.0 - 75.0 07/21/2016 [facility] HEMATOLOGY Eosinophils 0.5 0.0 - 4.0 07/21/2016 [facility] HEMATOLOGY Basophils 0.2 0.0 - 1.0 07/21/2016 [facility] HEMATOLOGY Segs-Bands # 4.1 1.5 - 8.1 07/21/2016 [facility] Monocytes 12.3 2.0 - 12.0 07/21/2016 [facility] Lymphocytes # 1.5 1.0 - 5.5 07/21/2016 [facility] Monocytes # 0.8 0.0 - 0.8 07/21/2016 [facility] Platelet 208 133 - 450 07/21/2016 [facility] RDW 14.5 11.5 - 14.5 07/21/2016 [facility] MCH 28.3 27.0 - 31.0 07/21/2016 [facility] MPV 8.6 7.4 - 10.4 07/21/2016 [facility] MCV 82.1 80.0 - 98.0 07/21/2016 [facility] Hct 29.5 36.0 - 48.0 07/21/2016 [facility] Hgb 10.1 12.0 - 16.0 07/21/2016 [facility] RBC 3.59 4.20 - 5.40 07/21/2016 [facility] WBC 6.4 3.7 - 10.4 07/21/2016 [facility] MCHC 34.4 32.0 - 36.0 07/21/2016 [facility] ANEMIA STUDY % [place] 8 12 - 57 07/20/2016 [facility] ANEMIA STUDY UIBC 193 110 - 370 07/20/2016 [facility] ANEMIA STUDY Iron 17 30 - 160 07/20/2016 [facility] ANEMIA STUDY TIBC 210 228 - 428 07/20/2016 [facility] ANEMIA STUDY Ferritin Lvl 200 5 - 204 07/20/2016 [facility] CHEM PANEL Magnesium Lvl 1.7 1.8 - 2.4 07/20/2016 [facility] CHEM PANEL Lipase Lvl 65 73 - 393 07/20/2016 [facility] CHEM PANEL eGFR 103 07/20/2016 Result Comment: The eGFR is calculated [...] should be multiplied by the estimated BMI. [facility] CHEM PANEL Glucose Lvl 128 70 - 99 07/20/2016 [facility] CHEM PANEL Albumin Lvl 2.3 3.5 - 5.0 07/20/2016 [facility] CHEM PANEL AST 17 0 - 37 07/20/2016 [facility] CHEM PANEL ALT 15 0 - 65 07/20/2016 [facility] CHEM PANEL Bili Total 1.1 0.2 - 1.3 07/20/2016 [facility] CHEM PANEL Alk Phos 85 39 - 136 07/20/2016 [facility] CHEM PANEL Creatinine Lvl 0.59 0.50 - 1.40 07/20/2016 [facility] CHEM PANEL BUN 8 7 - 22 07/20/2016 [facility] CHEM PANEL Sodium Lvl 136 135 - 145 07/20/2016 [facility] CHEM PANEL Potassium Lvl 3.2 3.5 - 5.1 07/20/2016 [facility] CHEM PANEL CO2 23 24 - 32 07/20/2016 [facility] CHEM PANEL Chloride Lvl 103 95 - 109 07/20/2016 [facility] CHEM PANEL Calcium Lvl 7.8 8.5 - 10.5 07/20/2016 [facility] CHEM PANEL Total Protein 6.6 6.4 - 8.4 07/20/2016 [facility] CHEM PANEL A/G Ratio 0.5 0.7 - 1.6 07/20/2016 [facility] CHEM PANEL Globulin 4.3 2.7 - 4.2 07/20/2016 [facility] CHEM PANEL B/C Ratio 14 6 - 25 07/20/2016 [facility] CHEM PANEL AGAP 13.2 10.0 - 20.0 07/20/2016 [facility] HEMATOLOGY Plt Morph Normal (07/20/16 4:46 AM) 07/20/2016 [facility] HEMATOLOGY RBC Morph Normal (07/20/16 4:46 AM) 07/20/2016 [facility] HEMATOLOGY Tot Cell Ct 100 07/20/2016 [facility] HEMATOLOGY Segs 76.0 45.0 - 75.0 07/20/2016 [facility] Segs-Bands # 5.8 1.5 - 8.1 07/20/2016 [facility] Monocytes # 0.6 0.0 - 0.8 07/20/2016 [facility] Lymphocytes # 0.8 1.0 - 5.5 07/20/2016 [facility] Atypical Lymphs 0.0 <=0.0 % 07/20/2016 [facility] Monocytes 8.0 2.0 - 12.0 07/20/2016 [facility] HEMATOLOGY Lymphocytes 11.0 20.0 - 40.0 07/20/2016 [facility] HEMATOLOGY Bands 5.0 0.0 - 11.0 07/20/2016 [facility] HEMATOLOGY MCV 82.8 80.0 - 98.0 07/20/2016 [facility] MCH 28.5 27.0 - 31.0 07/20/2016 [facility] RDW 14.4 11.5 - 14.5 07/20/2016 [facility] Platelet 210 133 - 450 07/20/2016 [facility] MCHC 34.4 32.0 - 36.0 07/20/2016 [facility] WBC 7.2 3.7 - 10.4 07/20/2016 [facility] RBC 3.80 4.20 - 5.40 07/20/2016 [facility] Hct 31.5 36.0 - 48.0 07/20/2016 [facility] Hgb 10.8 12.0 - 16.0 07/20/2016 [facility] MPV 8.7 7.4 - 10.4 07/20/2016 [facility] LIPIDS Chol 111 <=199 mg/dL 07/20/2016 [facility] LIPIDS Trig 259 <=149 mg/dL 07/20/2016 [facility] LIPIDS VLDL 52 07/20/2016 [facility] LIPIDS CHD Risk 9.25 3.90 - 5.80 07/20/2016 [facility] LIPIDS HDL 12 >=61 mg/dL 07/20/2016 [facility] LIPIDS LDL (Calculated) 47 <=99 mg/dL 07/20/2016 [facility] SPECIAL CHEMISTRY Hgb A1C 7.3 <=5.6 % 07/20/2016 [facility] CHEM PANEL eGFR 84 07/19/2016 Result Comment: The eGFR is calculated [...] should be multiplied by the estimated BMI. [facility] CHEM PANEL AGAP 13.2 10.0 - 20.0 07/19/2016 [facility] CHEM PANEL Calcium Lvl 7.8 8.5 - 10.5 07/19/2016 [facility] CHEM PANEL Chloride Lvl 103 95 - 109 07/19/2016 [facility] CHEM PANEL CO2 21 24 - 32 07/19/2016 [facility] CHEM PANEL Potassium Lvl 3.2 3.5 - 5.1 07/19/2016 [facility] CHEM PANEL Creatinine Lvl 0.79 0.50 - 1.40 07/19/2016 [facility] CHEM PANEL Sodium Lvl 134 135 - 145 07/19/2016 [facility] CHEM PANEL Glucose Lvl 231 70 - 99 07/19/2016 [facility] CHEM PANEL BUN 14 7 - 22 07/19/2016 [facility] HEMATOLOGY WBC 7.6 3.7 - 10.4 07/19/2016 [facility] HEMATOLOGY RBC 3.86 4.20 - 5.40 07/19/2016 [facility] HEMATOLOGY Hct 32.1 36.0 - 48.0 07/19/2016 [facility] HEMATOLOGY Hgb 10.9 12.0 - 16.0 07/19/2016 [facility] HEMATOLOGY Platelet 194 133 - 450 07/19/2016 [facility] HEMATOLOGY MPV 8.6 7.4 - 10.4 07/19/2016 [facility] HEMATOLOGY MCV 83.3 80.0 - 98.0 07/19/2016 [facility] MCH 28.2 27.0 - 31.0 07/19/2016 [facility] MCHC 33.9 32.0 - 36.0 07/19/2016 [facility] HEMATOLOGY RDW 14.3 11.5 - 14.5 07/19/2016 [facility] CHEM PANEL Lactic Acid Lvl 1.6 0.5 - 2.2 07/19/2016 [facility] CHEM PANEL Lactic Acid Lvl 2.3 0.5 - 2.2 07/18/2016 [facility] URINE AND STOOL UA Color Tiana 07/18/2016 [facility] URINE AND STOOL UA Nitrite Positive *ABN* (07/18/16 5:03 PM) Negative 07/18/2016 [facility] URINE AND STOOL UA Urobilinogen 4.0 0.1 - 1.0 07/18/2016 [facility] URINE AND STOOL UA Blood Moderate *ABN* (07/18/16 5:03 PM) Negative 07/18/2016 [facility] URINE AND STOOL UA Bili Negative *NA* (07/18/16 5:03 PM) Negative 07/18/2016 [facility] URINE AND STOOL UA Ketones Trace mg/dL Negative mg/dL 07/18/2016 [facility] URINE AND STOOL UA Sq Epi None Seen 07/18/2016 [facility] URINE AND STOOL UA Bacteria Occasional /HPF None Seen /HPF 07/18/2016 [facility] URINE AND STOOL UA RBC 38 0 - 2 07/18/2016 [facility] URINE AND STOOL UA WBC >182 0 - 5 07/18/2016 [facility] URINE AND STOOL UA Leuk Est Large *ABN* (07/18/16 5:03 PM) Negative 07/18/2016 [facility] URINE AND STOOL UA Glucose 500 mg/dL Negative mg/dL 07/18/2016 [facility] URINE AND STOOL UA Protein 100 mg/dL Negative mg/dL 07/18/2016 [facility] URINE AND STOOL UA pH 6.0 5.0 - 8.0 07/18/2016 [facility] URINE AND STOOL UA Spec Grav 1.024 <=1.030 07/18/2016 [facility] URINE AND STOOL UA Turbidity Marked *ABN* (07/18/16 5:03 PM) Clear 07/18/2016 [facility] HEMATOLOGY Lymphocytes 6.7 20.0 - 40.0 07/18/2016 [facility] HEMATOLOGY Segs 86.6 45.0 - 75.0 07/18/2016 [facility] HEMATOLOGY Segs-Bands # 13.2 1.5 - 8.1 07/18/2016 [facility] HEMATOLOGY Monocytes 6.6 2.0 - 12.0 07/18/2016 [facility] HEMATOLOGY Basophils 0.1 0.0 - 1.0 07/18/2016 [facility] HEMATOLOGY Lymphocytes # 1.0 1.0 - 5.5 07/18/2016 [facility] HEMATOLOGY Monocytes # 1.0 0.0 - 0.8 07/18/2016 [facility] RAPID Grp A Strep Scr Negative (07/18/16 4:47 PM) Negative 07/18/2016 [facility] VIRAL - SEROLOGY Influ B Negative (07/18/16 4:47 PM) Negative 07/18/2016 [facility] VIRAL - SEROLOGY Influ A Negative (07/18/16 4:47 PM) Negative 07/18/2016 [facility] Pathology Reports No Data Provided for This Section Diagnostic Reports Report Value Date Source Renal pyelogram retrograde DX Right retrograde pyelogram: [...] proximal pigtail in the upper pole infundibulum. SL [id number] 07/19/2016 [facility] [address]al [address] CT ABD PELVIS W/O [...] right renal pelvis causing mild hydronephrosis. 07/18/2016 [facility] Chest 2 views DX Study: CHEST, PA [...] thoracic spondylosis. IMPRESSION: No acute abnormality. SL: LAURIE 07/18/2016 [facility] Consultation Notes No Data Provided for This Section Discharge Summaries No Data Provided for This Section History and Physicals No Data Provided for This Section Vital Signs Vital Sign Value Date Comments Source Systolic (mm Hg) 128 07/21/2016 [facility] Diastolic (mm Hg) 72 07/21/2016 [facility] Respitory Rate 18 07/21/2016 [facility] Heart Rate 76 07/21/2016 [facility] Temperature Oral (F) 98.8 F 07/21/2016 [facility] Heart Rate 83 07/21/2016 [facility] Respitory Rate 19 07/21/2016 [facility] Temperature Oral (F) 99.3 F 07/21/2016 [facility] Systolic (mm Hg) 150 07/21/2016 [facility] Diastolic (mm Hg) 76 07/21/2016 [facility] Respitory Rate 18 07/21/2016 [facility] Heart Rate 89 07/21/2016 [facility] Systolic (mm Hg) 147 07/21/2016 [facility] Diastolic (mm Hg) 78 07/21/2016 [facility] Temperature Oral (F) 98 F 07/21/2016 [facility] BMI Calculated 38.95 07/19/2016 [facility] Height 165.1 cm 07/19/2016 [facility] Weight 106.182 07/19/2016 [facility] Height 165.1 cm 07/18/2016 [facility] Weight 106.818 07/18/2016 [facility] BMI Calculated 39.19 07/18/2016 [facility] Encounters Location Location Details Encounter Type Encounter Number Reason For Visit Attending Provider ADM Date DC Date Status Source [facility] Inpatient [id number] Rajan Dawn 07/18/2016 07/21/2016 [facility] Procedures Procedure Code Date Perfomer Comments Source Caesarean section [id number] [facility] Cholecystectomy [id number] [facility] Exploration of carpal tunnel [id number] [facility] TORIBIO BSO - Total abdominal hysterectomy and bilateral salpingo-oophorectomy [id number] [facility] Assessment and Plan Assessment and Plan Date Source Extracted from:Title: Urology Note Author: Deshawn Childress MD Date: 07/21/16 Progress Note - Daily [facility] Completed: Jul, 10:46 by Deshawn Childress MD RM: 121 - 2W, SE C1B ELIER BOOTH 56y (: 1960) F Attending: Rajan Dawn MD Service: Internal Medicine Reason for Admission: ACUTE PYELONEPHRITIS, KIDNEY STONE, LEUKOCYTOSIS Working DRG: None Documented Code status: None Specified=FULL CODE Current diet: Isolation: None Documented Allergies: NKDA SUBJECTIVE Doing well. OBJECTIVE : no cva tenderness. 24hr Labs 07/21 0813 Glucose POC 109 H 07/21 0544 Lactic Acid Lvl 0.7 Sodium Lvl 140 Potassium Lvl 3.2 L Chloride Lvl 106 CO2 23 L AGAP 14.2 Glucose Lvl 116 H Creatinine Lvl 0.54 BUN 8 B/C Ratio 15 Total Protein 5.7 L Albumin Lvl 2.2 L Globulin 3.5 A/G Ratio 0.6 L Calcium Lvl 7.8 L ALT 13 AST 16 Alk Phos 86 Bili Total 0.6 eGFR 106 WBC 6.4 RBC 3.59 L Hgb 10.1 L Hct 29.5 L MCV 82.1 MCH 28.3 MCHC 34.4 RDW 14.5 Platelet 208 MPV 8.6 Segs 64.1 Monocytes 12.3 H Lymphocytes 22.9 Eosinophils 0.5 Basophils 0.2 Segs-Bands # 4.1 Lymphocytes # 1.5 Monocytes # 0.8 07/20 202 Glucose POC 245 H 07/20 1716 Glucose POC 187 H 07/20 1241 Glucose POC 163 H 07/20 0446 Ferritin Lvl 200 Iron 17 L % Satur Fe 8 L TIBC 210 L UIBC 193 Portillo still necessary (Yes/No): Line still necessary (Yes/No): Vitals Tmp(F) Pulse BP RR SpO2 FIO2 07/21 07:57 98.8 76 128/72 18 98 --- 07/21 04:00 99.3 83 150/76 19 --- --- 07/21 00:00 98 89 147/78 18 96 --- 07/20 22:05 ---- --- ----- 16 98 21% 07/20 20:00 100 80 114/68 19 97 --- 24 Hr Tmax: 100F (37.78c) at 07/20 20:00 Vital Signs are the last 5 in the past 48 hours. Date Wt(kg) Wt(lb) Ht(cm) Ht(in) Method 07/18 (initial) 106.82 235.00 Estimated 07/18 165.10 65.00 Stated I&O Record In Out Bal 07/21 24hr Tot 155 0 155 07/20 24hr Tot 2206 6218 -1892 Medications (25) Active Scheduled Meds (9): 07/18/16 cefepime + sodium chloride 0.9% INJ 100 mL 1 gm IV [id number] 25 ml/hr 07/18/16 gentamicin 120 mg IV [id number] 200 ml/hr 07/18/16 guaiFENesin (Mucinex) 600 mg [...] 1,000 mL 1,000 mL 125 ml/hr ASSESSMENT and PLAN: 56 yo F with right renal stone s/p stent placement. Doing well. -- Patient with gold card. Attempted to schedule follow up appointment with [facility] Urology clinic, but unable to do so secondary to patient's outstanding balance with hospital. Patient expressed that she will clear the outstanding balance this week. [facility] clinic info provided. -- Will set up appointment to follow up with Dr. Casanova in 2 weeks with preclinic [facility], just in case. -- Patient ok for discharge from urology standpoint. Discussed with Dr. Casanova. 07/21/2016 [facility] Plan of Care No Data Provided for This Section Social History Social History Date Source Social History TypeResponse Substance Abuse Use: None. Alcohol Never Smoking Status Never smoker; Ready to change: No; Concerns about tobacco use in household: No; Exposure to Tobacco Smoke None; Cigarette Smoking Last 365 Days No; Reg Smoking Cessation Counseling No 07/19/2016 [facility] Family History No Data Provided for This Section Advance Directives No Data Provided for This Section Functional Status No Data Provided for This Section
[2019-01-12 09:15] VITALS: BP 123/72
--- NOTE | 2019-01-13 11:09 | Diagnostic Imaging Report ---
EXAMINATION: CHEST 2 VIEWS INDICATION: Pre-operative COMPARISON: None FINDINGS: LINES/TUBES:None LUNGS:The lungs are well-inflated. No focal consolidation or pulmonary edema. PLEURA:No pleural effusion or pneumothorax. MEDIASTINUM:The cardiomediastinal silhouette appears normal in size and shape. BONES/SOFT TISSUES:No acute osseous injury. ABDOMEN:No free air under the diaphragm. IMPRESSION: No focal pneumonia or pulmonary edema. Signed by: Nahid Rose MD on 01/11/2019 10:31 AM
--- NOTE | 2019-01-13 14:58 | Operative Report ---
DATE OF PROCEDURE: 01/12/2019 SURGEON: Nahid Grayson MD PREOPERATIVE DIAGNOSES: Left knee medial meniscus tear, left knee degenerative joint disease. POSTOPERATIVE DIAGNOSES: Left knee medial meniscus tear, left knee degenerative joint disease, left knee intra-articular loose bodies. OPERATION/PROCEDURE PERFORMED: The patient underwent a left knee exam under anesthesia, left knee arthroscopy, left knee partial medial meniscectomy, left knee chondroplasty of the patella, the trochlea, the medial femoral condyle, the medial tibial plateau and the lateral tibial plateau. The patient also underwent arthroscopic removal of intra-articular loose bodies. COMPOSITE ENGINEER: Desire Lawrence. ANESTHESIA: General endotracheal intubation anesthesia. IV FLUIDS: Per the anesthesia record. BRIEF DESCRIPTION OF THE PATIENT'S OPERATIVE PROCEDURE: Ms. Mixon was taken to the operating room, placed in a supine position on the operating table. Following induction of general anesthesia as well as endotracheal intubation, the patient's left lower extremity was examined under anesthesia. She was found to have a mild effusion within the knee joint, but otherwise ligamentously stable knee. The patient's lower extremity was prepped and draped in standard surgical fashion. A two-port technique used to provide this patient arthroscopic evaluation of the knee joint. Examination of the suprapatellar pouch and medial lateral gutters found no evidence of loose bodies. Examination of the suprapatellar pouch, not found. No evidence of loose bodies. There was however a loose body in the medial gutter. Scope was advanced to the medial compartment and examination of medial compartment demonstrated a tear of the posterior horn of the medial meniscus. A combination of biting forceps and a motorized shaver used to resect the torn portion of meniscus. The intra-articular loose body also entered the medial compartment was removed at this time using a shaver. The scope was then advanced to the intercondylar notch. The anterior cruciate ligament was identified and found to be intact. Scope was then advanced to the lateral compartment. Chondroplasties of the medial femoral condyle and medial tibial plateau were also performed. The scope was then advanced to the intercondylar notch. The anterior cruciate ligament was identified and found to be intact. The scope was then advanced to the lateral compartment and an additional intra-articular loose body was encountered. It was removed using a shaver. There was chondromalacia of the lateral tibial plateau. A shaver was used to provide a chondroplasty of the lateral tibial plateau. The scope was then advanced in suprapatellar pouch and chondroplasties of the patellar trochlear performed. The knee was then deflated with sterile normal saline. Each of the portal sites were closed using 4-0 nylon suture. The portal sites as well as knee itself were injected with 0.5% Marcaine with epinephrine. Sterile dressings were applied. The patient was then awakened and taken to postanesthesia care unit in stable condition. MD GERARDO Lopez/SHIRA /[id number]
== END | disposition home or self-care (01) ==
LOC: OR 05:07
PROVIDERS: ATTEND Specialist
DX: S83.2 Tear of meniscus, current injury (principal); S76.312A Strain of muscle, fascia and tendon of the posterior muscle group at thigh level, left thigh, initial encounter; M17.12 Unilateral primary osteoarthritis, left knee; E11.9 Type 2 diabetes mellitus without complications; R94.31 Abnormal electrocardiogram [ECG] [EKG]; I10 Essential (primary) hypertension; K29.70 Gastritis, unspecified, without bleeding; M94.262 Chondromalacia, left knee; M23.42 Loose body in knee, left knee; Z79.84 Long term (current) use of oral hypoglycemic drugs; Z91.041 Radiographic dye allergy status; X58.XXXA Exposure to other specified factors, initial encounter
CPT/HCPCS: 29881; 36415 ×2; 71046; 80048; 82948; 85025; 93005; J0690; J1100; J1885; J2001; J2250; J2405; J2704; J3010

== ENCOUNTER 2019-03-19 17:29 | Emergency (ER) | payer MEDICARE ==
[~2019-03-19] VITALS: Ht 157.5 cm; Wt 106.6 kg
[~2019-03-19 17:29] MED LIST changes: -BUPIVACAINE 0.5%/EPI 30 ML SDV INJ ONE; -CEFAZOLIN SOD 1 GM/NS 50ML 100 ML IV ONE; -DEXAMETHASONE SOD PHOS INJ 4 MG/ML VIAL ONE; -FENTANYL CITRATE/PF 100MCG/2 ML INJ ONE; -HYDROCODONE/APAP 5MG-325MG TAB ONE; -KETOROLAC TROMETHAMINE 30 MG/ML VIAL ONE; -LIDOCAINE HCL 2% LOCAL INJ 5 ML SDV VIAL INJ ONE; -MIDAZOLAM HCL 2 MG/2 ML VIAL ONE; -ONDANSETRON HCL INJ 2MG/ML 2ML 2 MG/ML VIAL ONE; -PROPOFOL IV EMULSION 10 MG/ML 20 ML VIAL ONE; -SEVOFLURANE INHAL SOLN 250 ML PEN BTL ONE
--- NOTE | 2019-03-19 18:27 | Diagnostic Imaging Report ---
Examination: Single AP view of the chest. COMPARISON: None. INDICATION: Nausea, dizziness DISCUSSION: Lines/tubes: None. Lungs: The lungs are well inflated and clear. No pneumonia or pulmonary edema. Pleura: No pleural effusion or pneumothorax. Heart and mediastinum: Cardiomegaly. Bones and soft tissues: No acute bony abnormalities. IMPRESSION: 1. Cardiomegaly without decompensation Signed by: Dr. Ozzy Martin M.D. on 03/19/2019 6:23 PM
--- NOTE | 2019-03-19 18:33 | Diagnostic Imaging Report ---
CT BRAIN WO HISTORY: Dizziness, nausea COMPARISON: None. Technique: Noncontrast axial scans were obtained from skull base to the vertex. Coronal and sagittal reconstructions obtained from the axial data. One or more of the following dose reduction techniques were used: Automated exposure control, adjustment of the mA and/or kV according to patient size, and/or utilization of iterative reconstruction technique. DISCUSSION: Scalp/Skull: Unremarkable. Brain sulci: Mildly prominent. Ventricles: Compensatory dilatation. Extra-axial spaces: No masses or fluid collections. Carotid siphon calcifications are present. Parenchyma: Mild to moderate bilateral deep white matter hypodensity is likely chronic microvascular ischemic change. Otherwise, no masses, hemorrhage, or large vascular territory acute infarct. Dural sinuses: No abnormal densities. Sellar/Suprasellar region: Partially empty sella. Skull base: Intact. Incidental findings: None. IMPRESSION: 1. No acute intracranial abnormalities. 2. Mild to moderate supratentorial chronic microvascular ischemic change. Mild generalized cerebral volume loss. Signed by: Dr. Ruben Baxter M.D. on 03/19/2019 6:30 PM
[2019-03-19 18:58] LABS: BILIRUBIN,URINE NEGATIVE (NEGATIVE); CLARITY,URINE CLEAR (CLEAR); COLOR,URINE YELLOW (YELLOW); KETONES,URINE NEGATIVE (NEGATIVE); LEUKOCYTE ESTERASE ,URINE NEGATIVE (NEGATIVE); NITRITE,URINE NEGATIVE (NEGATIVE); PROTEIN,URINE DIPSTICK NEGATIVE (NEGATIVE); URINE UROBILINOGEN 0.2 mg/dL (0.2 - 1)
[2019-03-19 19:09] LABS: INR 0.92; PROTHROMBIN TIME 12.9 seconds (11.9-14.5)
[2019-03-19 19:10] LABS: PARTIAL THROMBOPLASTIN TIME 34.2 seconds (23.8-35.5)
[2019-03-19] MEDS ORDERED: MECLIZINE HCL 12.5 MG TAB PO ONE (19:15)
[2019-03-19 19:18] LABS: ALANINE AMINOTRANSFERASE 29 IU/L (0-55); ALBUMIN 3.6 g/dL (3.5-5.0); ALBUMIN/GLOBULIN RATIO 0.9 (0.8-2.0); ALKALINE PHOSPHATASE 91 IU/L (40-150); ANION GAP 17.4 mmol/L (8-16); BLOOD UREA NITROGEN 8 mg/dL (7-26); BUN/CREATININE RATIO 10 (6-25); CALCIUM 9.9 mg/dL (8.4-10.2); CARBON DIOXIDE 22 mmol/L (22-29); CHLORIDE 103 mmol/L (98-107); CREATINE KINASE 105 IU/L (29-168); CREATININE, SERUM 0.79 mg/dL (0.57-1.11); EST GLOMERULAR FILTRATION RATE > 60 ML/MIN (60-); GLUCOSE 162 mg/dL (74-118); MAGNESIUM 1.5 MG/DL (1.3-2.1); POTASSIUM 3.4 mmol/L (3.5-5.1); SODIUM 139 mmol/L (136-145)
[2019-03-19 19:20] LABS: BACTERIA,URINE RARE /HPF; EPITHELIAL CELLS,URINE FEW /LPF; RBC,URINE 0-5 /HPF (0-5); WBC,URINE (MAN) 0-5 /HPF (0-5)
[2019-03-19 21:11] LABS: BASOPHILS # (AUTO) 0.1 (0.0-0.1); BASOPHILS % 0.6 % (0.0-1.0); EOSINOPHILS # (AUTO) 0.2 (0.0-0.4); EOSINOPHILS % 1.7 % (0.0-6.0); HEMATOCRIT 37.5 % (34.2-44.1); HEMOGLOBIN 12.3 g/dL (12.0-16.0); LYMPHOCYTES # (AUTO) 3.4 (1.0-3.2); LYMPHOCYTES % 38.7 % (18.0-39.1); MEAN CORPUSCULAR HEMOGLOBIN 29.3 pg (28-32); MEAN CORPUSCULAR HGB CONC 32.8 g/dL (31-35); MEAN CORPUSCULAR VOLUME 89.3 fL (81-99); MONOCYTES # (AUTO) 0.5 (0.2-0.8); MONOCYTES % 5.7 % (4.4-11.3); NEUTROPHILS # (AUTO) 4.6 (2.1-6.9); NEUTROPHILS % 53.2 % (38.7-80.0); PLATELET COUNT 241 x10e3/uL (140-360); RED CELL DISTRIBUTION WIDTH 14.1 % (11.7-14.4)
[2019-03-19] MEDS ORDERED: MECLIZINE HCL12.5 MG PO (21:47)
[2019-03-19 22:01] VITALS: BP 138/82
== END 2019-03-19 22:05 | disposition home or self-care (01) ==
LOC: ER 17:29
DX: H81.392 Other peripheral vertigo, left ear (principal); H81.02 Meniere's disease, left ear; R42 Dizziness and giddiness; I10 Essential (primary) hypertension; E11.9 Type 2 diabetes mellitus without complications; E78.5 Hyperlipidemia, unspecified; Z82.49 Family history of ischemic heart disease and other diseases of the circulatory system
CPT/HCPCS: 36415; 70450; 71045; 80053; 81001; 82550; 82553; 83735; 84484; 85025; 85610; 85730; 93005; 99283; J8597

== ENCOUNTER → 2020-01-10 | Outpatient (CLI) | payer MEDICARE ==
[~2020-01-10] MED LIST changes: +MECLIZINE HCL12.5 MG PO
--- NOTE | 2020-01-10 13:30 | Diagnostic Imaging Report ---
EXAMINATION: HEEL RT INDICATION: Right heel pain COMPARISON: None FINDINGS: AP and lateral images of the right calcaneus demonstrate no acute fracture or dislocation. Alignment appears anatomic. No substantial degenerative change. No ankle joint effusion. Small plantar calcaneal spur. Soft tissues appear unremarkable. IMPRESSION: No acute osseous injury. Small plantar calcaneal spur. Signed by: Nahid Rose MD on 01/10/2020 1:27 PM
== END ==
LOC: RAD 12:06
PROVIDERS: ATTEND Family Medicine
DX: M79.671 Pain in right foot (principal); M77.31 Calcaneal spur, right foot

== ENCOUNTER → 2020-01-19 | Outpatient (CLI) | payer MEDICARE | LOC: MAMMO 16:21 | PROVIDERS: ATTEND Family Medicine | DX: Z12.31 Encounter for screening mammogram for malignant neoplasm of breast (principal) | CPT/HCPCS: 77067 ==

== ENCOUNTER 2022-09-15 17:08 | Emergency (ER) | payer MEDICARE ==
[~2022-09-15] VITALS: Ht 157.5 cm; Wt 106.6 kg
== END 2022-09-15 19:46 | disposition home or self-care (01) ==
LOC: ER 17:14
DX: M25.561 Pain in right knee (principal); Y93.01 Activity, walking, marching and hiking; I10 Essential (primary) hypertension; E11.9 Type 2 diabetes mellitus without complications; E78.5 Hyperlipidemia, unspecified
CPT/HCPCS: 99282